=== PATIENT | female | born 1940 | race Caucasian/White ===

== ENCOUNTER 2022-04-28 05:40 | Inpatient (IN) | payer MEDICARE, SELFPAY ==
[2022-04-28] VITALS (34 sets, daily range): BP systolic 98–147; BP diastolic 44–71; PULSE 83–120; RESP 15–25; TEMP 36.3–37.5; O2SAT 90–100; BMI 41.1
--- NOTE | ~2022-04-28 | XR_ITS ---
EXAMINATION: XR chest 1V portable DATE: 05/06/2022 05:48 INDICATION: Left pneumothorax TECHNIQUE: frontal view of the chest was obtained. COMPARISON: Chest radiograph dated 05/05/2022 FINDINGS: Minimal left basilar atelectasis. Small masslike opacity in the left upper lung zone projecting along the lateral margin of the aortic arch. No other airspace opacities, pulmonary edema, pleural effusio n or pneumothorax. The cardiomediastinal silhouette is normal. Left pectoral implantable cardiac norris tor. IMPRESSION: 1. Mild left basilar atelectasis. No pneumothorax or other acute cardiopulmonary disease. 2. Left upper lobe nodule with prior biopsy consistent with either pulmonary hamartoma or chondroma. Reviewed, dictated and finalized at location A. IMPRESSION: 1. Mild left basilar atelectasis. No pneumothorax or other acute cardiopulmonar y disease. 2. Left upper lobe nodule with prior biopsy consistent with either pulmonary mendosa martoma or chondroma.
--- NOTE | ~2022-04-28 | XR_ITS ---
XR chest 1V portable DATE: 05/02/2022 06:43 INDICATION: Pneumothorax post lung biopsy TECHNIQUE: Portable AP chest on 05/02/2022 at 0557 hours COMPARISON: portable AP chest at 13 at 05 hours FINDINGS: Increased left pneumothorax, the left lung apex down 6.5 cm, compared to approximately 2.1 cm on 05/01/2022. 2.3 cm left apical lung mass is again noted. Mild diffuse bilateral pulmonary special infiltrates. No pleural effusion. No right pneumothorax. Heart size is within normal range. IMPRESSION: Increased left pneumothorax since 05/11/2022, left lung apex down 6.5 cm; recommend consid eration for chest tube placement Telephoned the report on 05/02/2022 at 0758 hours to Second Medical Nurse Fadia. Reviewed, dictated and finalized at location A. IMPRESSION: Increased left pneumothorax since 05/11/2022, left lung apex down 6. 5 cm; recommend consideration for chest tube placement Telephoned the report on 05/02/2022 at 0758 hours to Second Medical Nurse Giorgio young
--- NOTE | ~2022-04-28 | XR_ITS ---
EXAMINATION: XR chest 1V portable DATE: 05/01/2022 11:13 INDICATION: Left lung nodule status post percutaneous biopsy. TECHNIQUE: A single frontal view of the chest was obtained. COMPARISON: Chest single view at 10:23 AM FINDINGS: There is a nodule in left lung upper lobe. There is mild atelectasis at left lung base. The re is a small left pneumothorax. No pleural effusion. The heart size is normal. There is an electroni c implant overlying left chest wall. IMPRESSION: 1. Small left pneumothorax. 2. Nodule in left lung upper lobe suspicious for primary bronchogenic carcinoma. Reviewed, dictated and finalized at location A. IMPRESSION: 1. Small left pneumothorax. 2. Nodule in left lung upper lobe suspicious for primary bronchogenic carcinoma .
--- NOTE | ~2022-04-28 | XR_ITS ---
XR chest-chest tube insert/pos DATE: 05/02/2022 10:19 INDICATION: Left pneumothorax. Chest tube placement. TECHNIQUE: Portable upright AP chest on 05/02/2022 at 1013 hours COMPARISON: 05/02/2022 portable AP chest at 0557 hours FINDINGS: Interval placement of left thoracostomy tube with resolution of left pneumothorax. Mild bibasilar infiltrate and/or atelectasis, left greater than right. IMPRESSION: Left chest tube placement; resolution of left pneumothorax Reviewed, dictated and finalized at Location A. Reviewed, dictated and finalized at location A.
--- NOTE | ~2022-04-28 | XR_ITS ---
EXAMINATION: XR chest 1V portable DATE: 05/05/2022 05:35 INDICATION: Left pneumothorax TECHNIQUE: frontal view of the chest was obtained. COMPARISON: Chest radiograph dated 05/04/2022 FINDINGS: Apically directed left chest tube. No pleural effusion or pneumothorax. Nodular opacity in the left u pper lung zone. Mild streaky atelectasis at the left lung base. The cardiomediastinal silhouette is normal. Left pectoral implantable gas dispenser. Oral contrast material in the transverse colon. IMPRESSION: 1. Unchanged left chest tube with no discernible pneumothorax. 2. Left upper lobe nodule with pathology from biopsy consistent with either pulmonary hamartoma or ch ondroma. Reviewed, dictated and finalized at location A. IMPRESSION: 1. Unchanged left chest tube with no discernible pneumothorax. 2. Left upper lobe nodule with pathology from biopsy consistent with either pul monary hamartoma or chondroma.
--- NOTE | ~2022-04-28 | CT_ITS ---
EXAMINATION: CT biopsy lung w/imaging DATE: 05/01/2022 10:35 INDICATION: Left lung upper lobe nodule. TECHNIQUE: The procedure including the risks, benefits, and alternatives and possibility of chest tub e placement were discussed with the patient. Risks discussed included infection, hemorrhage, approxim ately 1/3 risk of pneumothorax, approximately 1/10 risk of pneumothorax severe enough to warrant ches t tube placement, and rarely . The patient understood the risks and agreed to proceed. The patie nt was placed supine. The skin overlying the left chest was prepped and draped in sterile fashion. Anesthetic was administered with 1% lidocaine subcutaneously. A 19 gauge outer needle was advanced u nder CT guidance to the lesion of interest. A 20 gauge core biopsy needle was then used to obtain 3 c ore biopsy specimens. The needle was removed and the entry site was cleaned and dressed. The mA was a djusted according to patient size. Iterative reconstruction technique was employed. The dose-length p roduct was 116.72 mGy-cm. There were no immediate complications. FINDINGS: CT images demonstrate the outer needle tip adjacent to a 2.3 cm nodule in left lung upper l obe. IMPRESSION: 1. CT-guided core needle biopsy of of a 2.3 cm nodule in left lung upper lobe. Reviewed, dictated and finalized at location A.
--- NOTE | ~2022-04-28 | CT_ITS ---
EXAMINATION: CTA chest PE protocol DATE: 04/29/2022 13:46 INDICATION: Shortness of breath. Sepsis. TECHNIQUE: Computed tomography angiography (CTA) of the chest was performed with 100 mL Omnipaque-350 intravenous contrast timed to evaluate the pulmonary arteries. Coronal maximum intensity projection 3D-reconstructions were created by the technologist. Automated exposure control and iterative reconst ruction technique were employed. The dose-length product was 927.16 mGy-cm. COMPARISON: None. FINDINGS: The lungs demonstrate mild atelectasis. In the left upper lobe, there is a 2.3 cm nodule wi th eccentric calcifications. No pleural effusion. The heart size is normal. No pericardial effusion. There is no pulmonary embolus. There is severe thoracic spondylosis. IMPRESSION: 1. No pulmonary embolus. Sensitivity is moderately decreased by motion artifact. 2. 2.3 cm nodule with eccentric calcifications in left lung upper lobe suspicious for primary broncho genic carcinoma. Consider PET/CT or CT-guided biopsy. Reviewed, dictated and finalized at location A. IMPRESSION: 1. No pulmonary embolus. Sensitivity is moderately decreased by motion artifact . 2. 2.3 cm nodule with eccentric calcifications in left lung upper lobe suspicio us for primary bronchogenic carcinoma. Consider PET/CT or CT-guided biopsy.
--- NOTE | ~2022-04-28 | XR_ITS ---
EXAMINATION: XR chest 1V DATE: 05/01/2022 10:25 INDICATION: Left lung nodule status post percutaneous biopsy. TECHNIQUE: A single frontal view of the chest was obtained. COMPARISON: Chest single view 04/28/2022 FINDINGS: There is mild atelectasis at the lung bases. There is a nodule in left lung upper lobe. No pleural effusion or pneumothorax. The heart size is normal. An electronic implant overlies left chest wall. IMPRESSION: 1. Nodule in left lung upper lobe suspicious for primary bronchogenic carcinoma. Reviewed, dictated and finalized at location A. IMPRESSION: 1. Nodule in left lung upper lobe suspicious for primary bronchogenic carcinoma .
--- NOTE | ~2022-04-28 | XR_ITS ---
MODIFIED ESOPHAGRAM HISTORY: Aspiration pneumonia. TECHNIQUE: Modified barium esophagram was performed on 04/29/2022. I administered fluoroscopy and perfo rmed the exam with speech pathologist. Patient was seated for lateral fluoroscopic imaging for inges tion of thin liquids, pudding, solids and quantified amounts, followed by thin liquids in uncontrolle d amounts. This was recorded on tape. A single fluoroscopic spot image was also recorded. The DAP for this procedure was 2.163 Gycm2. The amount of fluoroscopy time used during this procedure was 2.9 mi nutes. FINDINGS: Oral stage: Adequate function. Pharyngeal stage: Occasional laryngeal penetration which was quickly cleared of trace amounts of thin liquid was observed with pudding consistency. No aspiration. Cervical/esophageal stage: Adequate function. IMPRESSION: Trace laryngeal penetration without aspiration. Please correlate with speech pathologist findings and specific feeding recommendations. Reviewed, dictated and finalized at location A. IMPRESSION: Trace laryngeal penetration without aspiration. Please correlate w dominguez speech pathologist findings and specific feeding recommendations.
--- NOTE | ~2022-04-28 | XR_ITS ---
EXAMINATION: XR chest 1V portable DATE: 04/28/2022 06:49 INDICATION: Shortness of breath. TECHNIQUE: A single frontal view of the chest was obtained. COMPARISON: None. FINDINGS: There is mild atelectasis at left lung base. No pleural effusion or pneumothorax. The heart size is normal. An electronic implant overlies left chest. IMPRESSION: 1. Mild atelectasis at left lung base. Reviewed, dictated and finalized at location A.
--- NOTE | ~2022-04-28 | XR_ITS ---
EXAMINATION: XR chest 1V portable DATE: 05/04/2022 06:34 INDICATION: Left pneumothorax TECHNIQUE: frontal view of the chest was obtained. COMPARISON: Chest radiograph dated 05/03/22 FINDINGS: Apically directed left chest tube. Unchanged trace left apical pneumothorax. Mild streaky bibasilar a telectasis. No pulmonary edema, pleural effusion or right-sided pneumothorax. The cardiomediastinal s ilhouette is normal. Left pectoral implantable manager monitoring. There is small amount of subcutaneous emphysema at the lateral left chest wall. IMPRESSION: 1. Unchanged left chest tube with trace residual left apical pneumothorax. 2. Unchanged mild bibasilar atelectasis versus less likely pneumonia. Reviewed, dictated and finalized at location A.
--- NOTE | ~2022-04-28 | XR_ITS ---
EXAMINATION: XR chest 1V portable DATE: 05/05/2022 09:22 INDICATION: Chest tube removal TECHNIQUE: frontal view of the chest was obtained. COMPARISON: Chest radiograph dated at 5:14 AM FINDINGS: Left chest tube has been removed. Lungs are clear with no focal airspace opacities, pulmonary edema, pleural effusion or pneumothorax. The cardiomediastinal silhouette is normal. Left pectoral implantab le radiation monitor. IMPRESSION: 1. No pneumothorax or other acute cardiopulmonary disease post left chest tube removal. Reviewed, dictated and finalized at location A.
--- NOTE | ~2022-04-28 | XR_ITS ---
XR chest 1V portable DATE: 05/03/2022 05:55 INDICATION: Pneumothorax; left chest tube TECHNIQUE: Portable AP chest on 05/03/2022 0546 hours COMPARISON: 05/02/2022 portable AP chest at 1013 hours FINDINGS: Left chest tube is again noted, distal tip overlying left lung apex. Extremely slight left apical pneumothorax is suggested. There is mild subcutaneous emphysema left chest wall. Approximately 2.3 cm left apical lung mass is again noted. There is mild infiltrate or atelectasis lung bases, left lower lobe. IMPRESSION: Slight to mild chest subcutaneous emphysema, left chest tube Left upper lobe lung mass Bilateral lower lung infiltrate or atelectasis, left greater than right Reviewed, dictated and finalized at location A.
--- NOTE | ~2022-04-28 | XR_ITS ---
EXAMINATION: XR chest 1V portable DATE: 05/01/2022 13:11 INDICATION: Left lung nodule status post percutaneous biopsy. TECHNIQUE: A single frontal view of the chest was obtained. COMPARISON: Chest single view at 11:11 AM FINDINGS: There is a nodule in left lung upper lobe. There is mild atelectasis at left lung base. The re is a small left pneumothorax. No pleural effusion. The heart size is normal. There is an electroni c implant in left anterior chest wall. IMPRESSION: 1. Worsened small left pneumothorax. I discussed this finding with Derrick Coyle. 2. Nodule in left lung upper lobe suspicious for primary bronchogenic carcinoma. Reviewed, dictated and finalized at location A. IMPRESSION: 1. Worsened small left pneumothorax. I discussed this finding with Derrick Coyle . 2. Nodule in left lung upper lobe suspicious for primary bronchogenic carcinoma .
--- NOTE | 2022-04-28 05:54 | ECG_ITS ---
Measurements Intervals [place] Rate: 107 P: 36 [place]: 148 QRS: 17 QRSD: 134 T: 25 QT: 368 QTc: 491 Interpretive Statements SINUS TACHYCARDIA RIGHT BUNDLE BRANCH BLOCK BASELINE ARTIFACT- I, II, III, AVR, AVL, AVF, V4-V5 ABNORMAL ECG NO PREVIOUS ECG AVAILABLE FOR COMPARISON Electronically Signed On 04-28-2022 9:27:06 CDT by Domo Fitzgerald D.O.
[2022-04-28 06:04] LABS: Basophils Absolute Auto 0.1 K/mm3 (0.0-0.1); Basophils Percent Auto 0.4 % (0.2-1.2); Eosinophils Percent Auto 0.2 % (0-4.4); Hematocrit 42.1 % (37.0-47.0); Hemoglobin 13.4 g/dL (12.0-15.0); Immature Granulocyte Absolute 0.05 K/mm3 (0.00-0.031); Immature Granulocyte Percent A 0.4 % (0-0.5); Lymphocytes Absolute Auto 0.35 K/mm3 (0.9-3.2); Lymphocytes Percent Auto 2.7 % (18.3-44.2); Mean Corpuscular HGB Conc 31.8 g/dl (32-36); Mean Corpuscular Hemoglobin 29.1 pg (26-34); Mean Corpuscular Volume 91.3 fl (80-100); Mean Platelet Volume 8.7 fl (7.4-10.4); Monocytes Absolute Auto 0.7 K/mm3 (0.1-0.6); Monocytes Percent Auto 5.7 % (2.6-8.5); Neutrophils Absolute Auto 11.6 K/mm3 (1.3-6.7); Neutrophils Percent Auto 90.6 % (45.5-73.1); Platelet Count Result 246 k/mm3 (150-375); Red Blood Count 4.61 M/mm3 (4.2-5.4); Red Cell Distribution Width 13.1 % (11.5-14.5); White Blood Count 12.8 K/mm3 (4.5-10.0)
[2022-04-28] MEDS: methylPREDNISolone SOD SUCC 125 MG VIAL IV PUSH (06:08)
--- NOTE | 2022-04-28 06:10 | ED.SOB ---
HPI - SOB/Dyspnea General Chief Complaint: Shortness of Breath/Dyspnea Stated Complaint: SOB Time Seen by Provider: 04/28/22 05:41 History of Present Illness HPI Narrative: Patient is an 81-year-old female who presents ER with shortness of breath. Began this morning. Patient hypoxic. Requiring 4 L which is new for her. Denies fevers or chills. Significant wheezing. Patient has history of CVA with dysphagia. Denies choking on anything recently. Patient does have a throaty cough. Related Data Home Medications Medication Instructions Recorded Confirmed acetaminophen 500 mg capsule 500 mg PO Q6H PRN Pain 1-3 04/28/22 04/28/22 aspirin 81 mg capsule 81 mg PO DAILY 04/28/22 04/28/22 bimatoprost 0.03 % eye drops 1 drp EACH EYE QPM 04/28/22 04/28/22 brinzolamide 1 %-brimonidine 0.2 % 1 drp LEFT EYE BID 04/28/22 04/28/22 eye drops,suspension (Simbrinza) calcium carbonate 600 mg-vitamin 1 tablet PO DAILY 04/28/22 04/28/22 D3 10 mcg (400 unit) tablet diphenoxylate-atropine 2.5 1 tablet PO QID PRN Diarrhea 04/28/22 04/28/22 mg-0.025 mg tablet fluticasone propionate 50 1 spray intranasal DAILY 04/28/22 04/28/22 mcg/actuation nasal spray,suspension guaifenesin 600 mg tablet, 600 mg PO BID 04/28/22 04/28/22 extended release 12 hr (Mucinex) meclizine 25 mg tablet 25 mg PO TID PRN dizziness 04/28/22 04/28/22 metoclopramide HCl 10 mg tablet 10 mg PO QID 04/28/22 04/28/22 (Reglan) nitrofurantoin 100 mg PO Q12H 04/28/22 04/28/22 monohydrate/macrocrystals 100 mg capsule (Macrobid) pantoprazole 40 mg tablet,delayed 40 mg PO QAM 04/28/22 04/28/22 release phenazopyridine 200 mg tablet 200 mg PO BID 04/28/22 04/28/22 (Pyridium) polyethylene glycol 3350 17 gram 17 g PO DAILY PRN Constipation 04/28/22 04/28/22 oral powder packet (Miralax) tramadol 50 mg tablet 50 mg PO Q8H PRN Pain 4-10 04/28/22 04/28/22 Allergies Allergy/AdvReac Type Severity Reaction Status Date / Time anastrozole Allergy Unknown Verified 04/28/22 13:11 exemestane Allergy Unknown Verified 04/28/22 13:11 tamoxifen Allergy Unknown Verified 04/28/22 13:11 Review of Systems Review of Systems: All systems reviewed & are unremarkable except as noted in HPI and below Constitutional: Constitutional: Denies chills, Denies fatigue, Denies fever(s) and Reports weakness ENT: Reports dysphagia, Denies nasal congestion and Denies sore throat Cardiovascular: Cardiovascular: Denies chest pain, Denies rapid heart rate and Denies radiating jaw, neck or arm pain Respiratory: Respiratory: Reports cough, Reports dyspnea and Reports wheezing Gastrointestinal: Gastrointestinal: Denies abdominal pain, Denies nausea and Denies vomiting [facility] Past Medical History Medical History (Updated 04/29/22 @ 11:20 by SEVEN Stone) Breast CA Chronic constipation Cognitive communication deficit CVA (cerebral vascular accident) Dysphagia Extended spectrum beta lactamase (ESBL) resistance Frequent urinary tract infections Hypercholesterolemia Hypertension Surgical History Surgical History (Updated 04/28/22 @ 13:31 by Iris Prince APRN) History of cataract surgery History of knee replacement Family History Family History (Updated 04/28/22 @ 13:31 by Iris Prince APRN) Mother Family history of malignant neoplasm Lung cancer Social History Social History (Updated 04/28/22 @ 13:32 by Iris Prince APRN) Social History: Patient is a full code. Smoking status: Never smoker Alcohol intake: never Substance use: never Substance use type: does not use Living arrangements: [facility] Additional living arrangements comments: [facility], lived with spouse previously Spiritual care concerns: No Exam Narrative: GENERAL: Chronically ill-appearing, morbidly obese, and in milddistress. HEAD: Normocephalic, atraumatic. EYES: PERRL and EOMI. CHEST: Poor air movement with expiratory wheezing throughou
[2022-04-28] MEDS: IPRATROPIUM BR 0.02% INH SOLN 0.5 MG/2.5 ML VIAL 1.5 MG INHALATION (06:12)
[2022-04-28] MEDS: ALBUTEROL SULFATE NEB 2.5 MG/0.5 ML INH 15 MG (06:12)
[2022-04-28 06:17] LABS: Alanine Aminotransferase 12 U/L (6-35); Albumin Level 4.3 g/dL (3.5-5.1); Alkaline Phosphatase 109 U/L (38-126); Anion Gap 8 mmol/L (8-16); Aspartate Amino Transferase 23 U/L (14-36); Bilirubin,Total 0.8 mg/dL (0.2-1.3); Blood Urea Nitrogen 16 mg/dL (7-17); Calcium 9.9 mg/dL (8.4-10.2); Carbon Dioxide 25 mmol/L (22-30); Chloride 95 mmol/L (98-107); Estimated CRCL calculation 42 ml/min; Estimated Glomerular Filt Rate 43; Glucose 135 mg/dL (65-110); Potassium 4.5 mmol/L (3.4-5.0); Sodium 128 mmol/L (137-145)
[2022-04-28 06:40] LABS: SARS-CoV-2 RNA PCR Negative
[2022-04-28] MEDS: DOXYCYCLINE 100 MG/NS 100 ML 100 MG/100 ML BAG IVPB (11:06)
[2022-04-28] MEDS: AMPICILLIN SULB 1.5 GM/NS 50ML 1.5 GM/50 ML VIAL IVPB (11:06)
--- NOTE | 2022-04-28 11:27 | ADMGEN ---
This patient, Irina Garcia, was admitted to Medical Room 255-. Patient/family oriented to hospital policies and general routines including ID bracelet, bed and alarms, visiting hours, pain management, procedures, bathroom and other care routines, personal items, smoking policy, room service/diet, and visiting hours. Information on how to activate the Rapid Response Team has been discussed. Patient/Family are encouraged to report perceived risks to care and to ask questions if they do not understand what they are told or what they should do.
--- NOTE | 2022-04-28 12:34 | PM.IMHP ---
H&P: HPI History of Present Illness Date/Time: 04/28/22 12:34 Chief Complaint: Shortness of breath Narrative: Irina Garcia is an 81 yo female with medical history of previous stroke, dysphagia, hypertension, hyperlipidemia, breast cancer, and recurrent UTIs associated with ESBL. The patient presented to the ED, from [facility], for evaluation of shortness of breath. The patient is fatigued, but AOx3. Her is at bedside assisting with medical information. She reports shortness of breath at rest starting yesterday evening. Her states last night before dinner she was without complaints. She reports associated alternating chills and sweating, cough with excessive mucous, and fatigue. She endorses coughing with eating and drinking, as well as burning with urination. No chest pain, palpitations, orthopnea, LE edema, abdominal pain, N/V/D, or flank pain. In the ED, her vitals were T99.5F, HR 98, RR 20, BP 130/47, spO2 90% on room air. SpO2 improved to 98% with 4L supplemental O2. Lab work was significant for WBC 12.8 with bandemia, glucose 135, sodium 128, BUN 16, creatinine 1.2, GFR 43, and lactic acid 4.7. Chest x-ray reported left lower lobe atelectasis and EKG showed sinus tachycardia with RBBB and artifact. She was treated with IV Unasyn 1.5 grams, Doxycycline 100 mg IV, solu-medrol 125 mg IV and duonebs x2. She will be admitted to the medical floor for further management of presumed aspiration pneumonia. Review of Systems Review of Systems: All systems reviewed & are unremarkable except as noted in HPI and below Musculoskeletal: Musculoskeletal: Reports neck pain PMFSH Past Medical History Medical History (Updated 04/28/22 @ 14:04 by Iris Prince APRN) Breast CA Chronic constipation Cognitive communication deficit CVA (cerebral vascular accident) Dysphagia Extended spectrum beta lactamase (ESBL) resistance Frequent urinary tract infections Hypercholesterolemia Hypertension Surgical History Surgical History (Updated 04/28/22 @ 13:31 by Iris Prince APRN) History of cataract surgery History of knee replacement Family History Family History (Updated 04/28/22 @ 13:31 by Iris Prince APRN) Mother Family history of malignant neoplasm Lung cancer Social History Social History (Updated 04/28/22 @ 13:32 by Iris Prince APRN) Social History: Patient is a full code. Smoking status: Never smoker Alcohol intake: never Substance use: never Living arrangements: halfway Additional living arrangements comments: [facility], lived with spouse previously Meds Home Medications and Allergies Home Medications Medication Instructions Recorded Confirmed Type acetaminophen 500 mg capsule 500 mg PO Q6H PRN Pain 1-3 04/28/22 04/28/22 History aspirin 81 mg capsule 81 mg PO DAILY 04/28/22 04/28/22 History bimatoprost 0.03 % eye drops 1 drp EACH EYE QPM 04/28/22 04/28/22 History brinzolamide 1 %-brimonidine 0.2 % 1 drp LEFT EYE BID 04/28/22 04/28/22 History eye drops,suspension (Simbrinza) calcium carbonate 600 mg-vitamin 1 tablet PO DAILY 04/28/22 04/28/22 History D3 10 mcg (400 unit) tablet diphenoxylate-atropine 2.5 1 tablet PO QID PRN Diarrhea 04/28/22 04/28/22 History mg-0.025 mg tablet fluticasone propionate 50 1 spray intranasal DAILY 04/28/22 04/28/22 History mcg/actuation nasal spray,suspension guaifenesin 600 mg tablet, 600 mg PO BID 04/28/22 04/28/22 History extended release 12 hr (Mucinex) meclizine 25 mg tablet 25 mg PO TID PRN dizziness 04/28/22 04/28/22 History metoclopramide HCl 10 mg tablet 10 mg PO QID 04/28/22 04/28/22 History (Reglan) nitrofurantoin 100 mg PO Q12H 04/28/22 04/28/22 History monohydrate/macrocrystals 100 mg capsule (Macrobid) pantoprazole 40 mg tablet,delayed 40 mg PO QAM 04/28/22 04/28/22 History release phenazopyridine 200 mg tablet 200 mg PO BID 04/28/22 04/28/22 History (Pyridium)
[2022-04-28 12:58] LABS: Lactic Acid Reflex 4.7 mmol/L (0.7-2.0)
--- NOTE | 2022-04-28 13:05 | PCSTNOTE ---
Please refer to the Bedside Swallow Evaluation in the EMR. Please note, silent aspiration cannot be ruled out at bedside.
--- NOTE | 2022-04-28 13:39 | PCSTNOTE ---
A MBS order was requested and allowed by hospitalist however it will not be completed today due to patient fatigue. Patient will be assessed in the morning for her ability to tolerate the MBS.
[2022-04-28 13:44] LABS: Procalcitonin 0.1 ng/mL
[2022-04-28] MEDS: ALBUTEROL SULFATE NEB 2.5 MG/3 ML INH 5 MG INHALATION ×2 (14:11→21:04)
[2022-04-28] MEDS: SODIUM CHLORIDE 0.9% IV 1,000 ML 999 ML IV CONT (14:14)
[2022-04-28] MEDS: HEPARIN SODIUM 5,000 UNITS/ML VIAL 5000 UNITS SUB-Q ×2 (14:15→20:32)
[2022-04-28 15:41] LABS: Reflex Lactic Acid Yes or No Add Lactic
[2022-04-28 16:34] LABS: Lactic Acid 3.6 mmol/L (0.7-2.0)
[2022-04-28] MEDS: SODIUM CHLORIDE 0.9% IV 1,000 ML 100 ML IV CONT (16:57)
[2022-04-28] MEDS: AMPICILLIN SULB 3 GM/NS 100 ML 3 GM/100 ML VIAL IVPB (16:57)
[2022-04-28 19:21] LABS: Sodium 128 mmol/L (137-145)
[2022-04-28 19:24] LABS: Lactic Acid Reflex 1.8 mmol/L (0.7-2.0)
[2022-04-28] MEDS: LATANOPROST 0.005% OP SOLN 2.5 ML BTL 1 DROP EACH EYE (20:32)
[2022-04-28] MEDS: BRIMONIDINE TARTRATE 0.2% OP SOLN 5 ML BTL 1 DROP LEFT EYE (20:32)
[2022-04-28] MEDS: BRINZOLAMIDE 1% OPHTH SUSP 10 ML 1 DROP LEFT EYE (20:38)
[2022-04-28] MEDS: ACETAMINOPHEN 650 MG SUPPOSITORY RECTAL (22:01)
[2022-04-28 22:13] LABS: Add Urine Microscopic? YES; Appearance Urine Turbid (Clear); Bilirubin Urine 1+ (Negative); Blood Urine 1+ (Negative); Color Urine Brown (Yellow); Glucose Urine UA Trace mg/dL (Negative); Ketones Urine 1+ mg/dL (Negative); Leukocyte Esterase Ur 3+ LEU/UL (Negative); Nitrate Urine Positive (Negative); Protein Urine 2+ mg/dL (Negative); Specific Grav Ur >= 1.030 (1.001-1.035)
[2022-04-28 22:36] LABS: Squamous Epithelial Cell Urine Few /hpf (Few)
[2022-04-28 22:37] LABS: Mucus Urine None seen /lpf
[2022-04-29] VITALS (18 sets, daily range): BP systolic 106–113; BP diastolic 56–75; PULSE 64–82; RESP 18–22; TEMP 36.3–36.7; O2SAT 95–99
[2022-04-29] MEDS: AMPICILLIN SULB 3 GM/NS 100 ML 3 GM/100 ML VIAL IVPB ×4 (00:06→17:19)
[2022-04-29] MEDS: ALBUTEROL SULFATE NEB 2.5 MG/3 ML INH 5 MG INHALATION ×3 (02:28→14:01)
[2022-04-29] MEDS: SODIUM CHLORIDE 0.9% IV 1,000 ML 100 ML IV CONT ×2 (04:05→19:25)
[2022-04-29 05:12] LABS: Eosinophils Percent Auto 0.1 % (0-4.4); Hematocrit 33.7 % (37.0-47.0); Hemoglobin 10.9 g/dL (12.0-15.0); Immature Granulocyte Absolute 0.04 K/mm3 (0.00-0.031); Immature Granulocyte Percent A 0.5 % (0-0.5); Lymphocytes Absolute Auto 0.76 K/mm3 (0.9-3.2); Lymphocytes Percent Auto 9.1 % (18.3-44.2); Mean Corpuscular HGB Conc 32.3 g/dl (32-36); Mean Corpuscular Hemoglobin 29.1 pg (26-34); Mean Corpuscular Volume 90.1 fl (80-100); Mean Platelet Volume 8.9 fl (7.4-10.4); Monocytes Absolute Auto 0.5 K/mm3 (0.1-0.6); Monocytes Percent Auto 6.5 % (2.6-8.5); Neutrophils Percent Auto 83.8 % (45.5-73.1); Platelet Count Result 194 k/mm3 (150-375); Red Blood Count 3.74 M/mm3 (4.2-5.4); White Blood Count 8.4 K/mm3 (4.5-10.0)
[2022-04-29] MEDS: SODIUM CHLOR 3% 15 ML NEB (RESPIRATORY THERAPY) 6 ML INHALATION (05:24)
[2022-04-29 05:26] LABS: Anion Gap 7 mmol/L (8-16); Blood Urea Nitrogen 18 mg/dL (7-17); Calcium 9.4 mg/dL (8.4-10.2); Carbon Dioxide 22 mmol/L (22-30); Chloride 100 mmol/L (98-107); Estimated CRCL calculation 47 ml/min; Estimated Glomerular Filt Rate 60; Glucose 122 mg/dL (65-110); Potassium 4.1 mmol/L (3.4-5.0); Sodium 129 mmol/L (137-145)
[2022-04-29] MEDS: HEPARIN SODIUM 5,000 UNITS/ML VIAL 5000 UNITS SUB-Q ×3 (05:33→21:41)
--- NOTE | 2022-04-29 05:43 | PCRCNOTE ---
patient was unable to submit a sputum sample; 6mL of sodium chloride 3% was given
[2022-04-29 06:12] LABS: Thyroid Stimulating Hormone Reflex 0.314 uIU/mL (0.465-4.68)
[2022-04-29 06:28] LABS: Folic Acid 3.2 ng/mL (2.76->20)
[2022-04-29 07:09] LABS: Free T4 Free Thyroxine Reflex 1.35 ng/dL (0.78-2.19)
--- NOTE | 2022-04-29 08:30 | P.PNIM_ITS ---
Progress Note: A&P Assessment and Plan (1) Sepsis: Qualifiers: Sepsis type: sepsis due to unspecified organism Sepsis acute organ dysfunction status: with acute organ dysfunction Severe sepsis acute organ dysfunction type: acute respiratory failure Acute respiratory failure type: with hypoxia Severe sepsis shock status: without septic shock Qualified Code(s): A41.9 - Sepsis, unspecified organism; R65.20 - Severe sepsis without septic shock; J96.01 - Acute respiratory failure with hypoxia Code(s): A41.9 - Sepsis, unspecified organism Status: Acute Assessment and Plan: * HR>90, WBC> 12,, lactic acid 4.7, and suspected aspiration pneumonia. Lactic acidosis presence is concerning for severe sepsis, however, it may also be elevated d/t hypoxia on presentation. * qSOFA score 1, not high risk * Initiate IV fluids 1 liter bolus then maintenance fluids. * Draw blood cultures x2 * Procalcitonin 0.1. * Repeat lactic acid was 1.8 * Continue antibiotics for presumed aspiration pneumonia. * Obtain UA with reflex culture d/t c/o of dysuria. If positive, will need to adjust antibiotics d/t h/o ESBL infection * Monitor hemodynamics. * +hypoxia and mildly elevated serum creatinine (unknown baseline). (2) Pneumonia: Qualifiers: Aspiration pneumonia type: unspecified Laterality: unspecified laterality Lung location: unspecified part of lung Pneumonia type: aspiration pneumonia Qualified Code(s): J69.0 - Pneumonitis due to inhalation of food and vomit Code(s): J18.9 - Pneumonia, unspecified organism Status: Acute Assessment and Plan: * Not sure this is PNA * Modified barium swallow did not indicate any aspiration * CTA of the chest ordered * Continue Unasyn for presumed aspiration pneumonia. * Albuterol neb PRN * Urine pneumococcal and legionella Ag pending (3) Hypoxia: Code(s): R09.02 - Hypoxemia Status: Acute Assessment and Plan: * Patient requiring supplemental O2 to keep sats>90%. * Continue O2, wean as tolerated. * Add incentive spirometry. * Continue management of pneumonia * CTA of the chest to rule out other causes like Clots or COPD (4) Hyponatremia: Code(s): E87.1 - Hypo-osmolality and hyponatremia Status: Acute Assessment and Plan: * Sodium 128 on admission, currently 129 * +Lethargy, but AOx3. Likely 2/2 hypovolemia as creatinine is mildly elevated. * NS@100 mL/hour. She received 1 L NS bolus for sepsis. * Continue to trend labs * Urine studies ordered (5) Generalized weakness: Code(s): R53.1 - Weakness Status: Acute Assessment and Plan: Secondary to UTI, sepsis, hyponatremia and presumed deconditioning. * PT/OT eval * Fall precautions (6) Dysphagia: Qualifiers: Dysphagia type: unspecified Qualified Code(s): R13.10 - Dysphagia, unspecified Code(s): R13.10 - Dysphagia, unspecified Status: Chronic Assessment and Plan: * H/O dysphagia following stroke. She reports eating bite-sized diet with thin liquids. +moist cough and subjective report of coughing with eating/drinking. * Consult speech therapy. * Advance diet to recommendations from speech * Not really convenience that this ois aspiration related * HOB>30. Aspiration precautions. (7) Frequent urinary tract infections: Code(s): N39.0 - Urinary tract infection, site not specified Status: Chronic Ass
--- NOTE | 2022-04-29 08:30 | PM.IMPN ---
Progress Note: A&P Assessment and Plan (1) Sepsis: Qualifiers: Sepsis type: sepsis due to unspecified organism Sepsis acute organ dysfunction status: with acute organ dysfunction Severe sepsis acute organ dysfunction type: acute respiratory failure Acute respiratory failure type: with hypoxia Severe sepsis shock status: without septic shock Qualified Code(s): A41.9 - Sepsis, unspecified organism; R65.20 - Severe sepsis without septic shock; J96.01 - Acute respiratory failure with hypoxia Code(s): A41.9 - Sepsis, unspecified organism Status: Acute Assessment and Plan: HR>90, WBC> 12,, lactic acid 4.7, and suspected aspiration pneumonia. Lactic acidosis presence is concerning for severe sepsis, however, it may also be elevated d/t hypoxia on presentation. qSOFA score 1, not high risk Initiate IV fluids 1 liter bolus then maintenance fluids. Draw blood cultures x2 Procalcitonin 0.1. Repeat lactic acid was 1.8 Continue antibiotics for presumed aspiration pneumonia. Obtain UA with reflex culture d/t c/o of dysuria. If positive, will need to adjust antibiotics d/t h/o ESBL infection Monitor hemodynamics. +hypoxia and mildly elevated serum creatinine (unknown baseline). (2) Pneumonia: Qualifiers: Aspiration pneumonia type: unspecified Laterality: unspecified laterality Lung location: unspecified part of lung Pneumonia type: aspiration pneumonia Qualified Code(s): J69.0 - Pneumonitis due to inhalation of food and vomit Code(s): J18.9 - Pneumonia, unspecified organism Status: Acute Assessment and Plan: Not sure this is PNA Modified barium swallow did not indicate any aspiration CTA of the chest ordered Continue Unasyn for presumed aspiration pneumonia. Albuterol neb PRN Urine pneumococcal and legionella Ag pending (3) Hypoxia: Code(s): R09.02 - Hypoxemia Status: Acute Assessment and Plan: Patient requiring supplemental O2 to keep sats>90%. Continue O2, wean as tolerated. Add incentive spirometry. Continue management of pneumonia CTA of the chest to rule out other causes like Clots or COPD (4) Hyponatremia: Code(s): E87.1 - Hypo-osmolality and hyponatremia Status: Acute Assessment and Plan: Sodium 128 on admission, currently 129 +Lethargy, but AOx3. Likely 2/2 hypovolemia as creatinine is mildly elevated. NS@100 mL/hour. She received 1 L NS bolus for sepsis. Continue to trend labs Urine studies ordered (5) Generalized weakness: Code(s): R53.1 - Weakness Status: Acute Assessment and Plan: Secondary to UTI, sepsis, hyponatremia and presumed deconditioning. PT/OT eval Fall precautions (6) Dysphagia: Qualifiers: Dysphagia type: unspecified Qualified Code(s): R13.10 - Dysphagia, unspecified Code(s): R13.10 - Dysphagia, unspecified Status: Chronic Assessment and Plan: H/O dysphagia following stroke. She reports eating bite-sized diet with thin liquids. +moist cough and subjective report of coughing with eating/drinking. Consult speech therapy. Advance diet to recommendations from speech Not really convenience that this ois aspiration related HOB>30. Aspiration precautions. (7) Frequent urinary tract infections: Code(s): N39.0 - Urinary tract infection, site not specified Status: Chronic Assessment and Plan: Denies any further complaints of urinary dysfunction +c/o burning with urination. No suprapubic tenderness or flank pain. Urine culture pending Continue Unasyn for now (8) Anemia: Code(s): D64.9 - Anemia, unspecified Status: Acute Assessment and Plan: Current H/H 10.9/33.7 Anemia labs in the am Supplement as indicated Transfuse if Hgb <7.0 Continue to trend labs Time Spent With Patient Time with anastasia
[2022-04-29 09:14] LABS: Total Triiodothyronine (T3) 0.55 NG/ML (0.97-1.69)
[2022-04-29] MEDS: BRIMONIDINE TARTRATE 0.2% OP SOLN 5 ML BTL 1 DROP LEFT EYE ×2 (09:27→20:38)
[2022-04-29] MEDS: BRINZOLAMIDE 1% OPHTH SUSP 10 ML 1 DROP LEFT EYE ×2 (09:27→20:38)
[2022-04-29] MEDS: PANTOPRAZOLE SODIUM IV 40 MG VIAL IV PUSH (09:27)
[2022-04-29] MEDS: LIDOCAINE 5% PATCH 1 PATCH TRANSDERM (09:28)
[2022-04-29] MEDS: FLUTICASONE PROPIONATE 0.05% NA SPR 16 GM BTL (*BKC) 1 SPRAY NASAL (09:28)
--- NOTE | 2022-04-29 09:32 | PCSTNOTE ---
Please refer to the Modified Barium Swallow Evaluation in the EMR.
[2022-04-29] MEDS: ALBUTEROL SULFATE NEB 2.5 MG/0.5 ML INH (20:17)
[2022-04-29] MEDS: ACETAMINOPHEN 650 MG SUPPOSITORY RECTAL (20:36)
[2022-04-29] MEDS: LATANOPROST 0.005% OP SOLN 2.5 ML BTL 1 DROP EACH EYE (20:38)
[2022-04-30] VITALS (17 sets, daily range): BP systolic 106–137; BP diastolic 53–77; PULSE 61–83; RESP 18–20; TEMP 36.5–36.8; O2SAT 95–99
[2022-04-30] MEDS: AMPICILLIN SULB 3 GM/NS 100 ML 3 GM/100 ML VIAL IVPB ×5 (00:09→23:44)
[2022-04-30 05:13] LABS: Basophils Percent Auto 0.4 % (0.2-1.2); Eosinophils Absolute Auto 0.8 K/mm3 (0-0.3); Eosinophils Percent Auto 11.4 % (0-4.4); Hematocrit 32.7 % (37.0-47.0); Hemoglobin 10.5 g/dL (12.0-15.0); Immature Granulocyte Absolute 0.04 K/mm3 (0.00-0.031); Immature Granulocyte Percent A 0.6 % (0-0.5); Lymphocytes Absolute Auto 1.51 K/mm3 (0.9-3.2); Lymphocytes Percent Auto 21.6 % (18.3-44.2); Mean Corpuscular HGB Conc 32.1 g/dl (32-36); Mean Corpuscular Hemoglobin 29.2 pg (26-34); Mean Corpuscular Volume 90.8 fl (80-100); Mean Platelet Volume 8.6 fl (7.4-10.4); Monocytes Absolute Auto 0.7 K/mm3 (0.1-0.6); Monocytes Percent Auto 9.3 % (2.6-8.5); Neutrophils Percent Auto 56.7 % (45.5-73.1); Platelet Count Result 195 k/mm3 (150-375); Red Cell Distribution Width 13.2 % (11.5-14.5)
[2022-04-30 05:23] LABS: Alanine Aminotransferase 12 U/L (6-35); Alkaline Phosphatase 68 U/L (38-126); Anion Gap 6 mmol/L (8-16); Aspartate Amino Transferase 20 U/L (14-36); Bilirubin,Total 0.3 mg/dL (0.2-1.3); Blood Urea Nitrogen 18 mg/dL (7-17); Carbon Dioxide 24 mmol/L (22-30); Chloride 101 mmol/L (98-107); Estimated CRCL calculation 39 ml/min; Estimated Glomerular Filt Rate 48; Glucose 85 mg/dL (65-110); Magnesium 1.9 mg/dL (1.6-2.3); Potassium 4.2 mmol/L (3.4-5.0); Sodium 131 mmol/L (137-145)
[2022-04-30 05:30] LABS: Transferrin 214 mg/dL (206-381)
[2022-04-30 05:34] LABS: Iron 22 ug/dL (37-170)
[2022-04-30 05:43] LABS: Percent Iron Saturation 7 % (20-50)
[2022-04-30] MEDS: HEPARIN SODIUM 5,000 UNITS/ML VIAL 5000 UNITS SUB-Q ×2 (05:45→13:59)
[2022-04-30] MEDS: SODIUM CHLORIDE 0.9% IV 1,000 ML 100 ML IV CONT (05:45)
[2022-04-30 07:53] LABS: Partial Thromboplastin Time 45.9 SECONDS (22.3-36.8)
--- NOTE | 2022-04-30 08:30 | PM.IMPN ---
Progress Note: A&P Assessment and Plan (1) Sepsis: Qualifiers: Acute respiratory failure type: with hypoxia Sepsis acute organ dysfunction status: with acute organ dysfunction Sepsis type: sepsis due to unspecified organism Severe sepsis acute organ dysfunction type: acute respiratory failure Severe sepsis shock status: without septic shock Qualified Code(s): A41.9 - Sepsis, unspecified organism; R65.20 - Severe sepsis without septic shock; J96.01 - Acute respiratory failure with hypoxia Code(s): A41.9 - Sepsis, unspecified organism Status: Acute Assessment and Plan: HR>90, WBC> 12, lactic acid 4.7, and suspected aspiration pneumonia. Lactic acidosis presence is concerning for severe sepsis, however, it may also be elevated d/t hypoxia on presentation. qSOFA score 1, not high risk Fluids stopped at this time blood cultures x2, NGTD Procalcitonin 0.1. Repeat lactic acid was 1.8 Continue antibiotics for presumed UTI Obtain UA with reflex culture d/t c/o of dysuria. If positive, will need to adjust antibiotics d/t h/o ESBL infection Monitor hemodynamics. Hypoxia and mildly elevated serum creatinine (unknown baseline). (2) Pneumonia: Qualifiers: Aspiration pneumonia type: unspecified Laterality: unspecified laterality Lung location: unspecified part of lung Pneumonia type: aspiration pneumonia Qualified Code(s): J69.0 - Pneumonitis due to inhalation of food and vomit Code(s): J18.9 - Pneumonia, unspecified organism Status: Acute Assessment and Plan: Not a problem at this time Not sure this is PNA Modified barium swallow did not indicate any aspiration CTA of the chest showed 2.3cm nodule in the left upper lobe Will continue antibiotics for possible UTI Albuterol neb PRN Urine pneumococcal and legionella Ag pending (3) Hypoxia: Code(s): R09.02 - Hypoxemia Status: Acute Assessment and Plan: Patient requiring supplemental O2 to keep sats>90%. Continue O2, wean as tolerated. Add incentive spirometry. Probably from the nodule in the left upper lobe CTA of the chest 2.3cm nodule in the left upper lobe Biopsy ordered Consult oncology for further recommendation (4) Hyponatremia: Code(s): E87.1 - Hypo-osmolality and hyponatremia Status: Acute Assessment and Plan: Sodium 128 on admission, currently 131 Noted Lethargy AOx3. Likely 2/2 hypovolemia as creatinine is mildly elevated. Stopped fluids at this time Continue to trend labs Urine studies ordered yet not collected (5) Generalized weakness: Code(s): R53.1 - Weakness Status: Acute Assessment and Plan: Secondary to UTI, sepsis, hyponatremia and presumed deconditioning. PT/OT eval Fall precautions (6) Dysphagia: Qualifiers: Dysphagia type: unspecified Qualified Code(s): R13.10 - Dysphagia, unspecified Code(s): R13.10 - Dysphagia, unspecified Status: Chronic Assessment and Plan: H/O dysphagia following stroke. She reports eating bite-sized diet with thin liquids. +moist cough and subjective report of coughing with eating/drinking. Consult speech therapy. Advance diet to recommendations from speech Soft and bite sized with thin liquids Not really convenience that this is aspiration related HOB>30. Aspiration precautions. (7) Frequent urinary tract infections: Code(s): N39.0 - Urinary tract infection, site not specified Status: Chronic Assessment and Plan: UA does appear to be infectious Denies any further complaints of urinary dysfunction +c/o burning with urination. No suprapubic tenderness or flank pain. Urine culture pending Continue Unasyn for now (8) Anemia: Code(s): D64.9 - Anemia, unspecified Status: Acute Assessment and Plan: Cu
--- NOTE | 2022-04-30 08:30 | P.PNIM_ITS ---
Progress Note: A&P Assessment and Plan (1) Sepsis: Qualifiers: Acute respiratory failure type: with hypoxia Sepsis acute organ dysfunction status: with acute organ dysfunction Sepsis type: sepsis due to unspecified organism Severe sepsis acute organ dysfunction type: acute respiratory failure Severe sepsis shock status: without septic shock Qualified Code(s): A41.9 - Sepsis, unspecified organism; R65.20 - Severe sepsis without septic shock; J96.01 - Acute respiratory failure with hypoxia Code(s): A41.9 - Sepsis, unspecified organism Status: Acute Assessment and Plan: * HR>90, WBC> 12, lactic acid 4.7, and suspected aspiration pneumonia. Lactic acidosis presence is concerning for severe sepsis, however, it may also be elevated d/t hypoxia on presentation. * qSOFA score 1, not high risk * Fluids stopped at this time * blood cultures x2, NGTD * Procalcitonin 0.1. * Repeat lactic acid was 1.8 * Continue antibiotics for presumed UTI * Obtain UA with reflex culture d/t c/o of dysuria. If positive, will need to adjust antibiotics d/t h/o ESBL infection * Monitor hemodynamics. * Hypoxia and mildly elevated serum creatinine (unknown baseline). (2) Pneumonia: Qualifiers: Aspiration pneumonia type: unspecified Laterality: unspecified laterality Lung location: unspecified part of lung Pneumonia type: aspiration pneumonia Qualified Code(s): J69.0 - Pneumonitis due to inhalation of food and vomit Code(s): J18.9 - Pneumonia, unspecified organism Status: Acute Assessment and Plan: * Not a problem at this time * Not sure this is PNA * Modified barium swallow did not indicate any aspiration * CTA of the chest showed 2.3cm nodule in the left upper lobe * Will continue antibiotics for possible UTI * Albuterol neb PRN * Urine pneumococcal and legionella Ag pending (3) Hypoxia: Code(s): R09.02 - Hypoxemia Status: Acute Assessment and Plan: * Patient requiring supplemental O2 to keep sats>90%. * Continue O2, wean as tolerated. * Add incentive spirometry. * Probably from the nodule in the left upper lobe * CTA of the chest 2.3cm nodule in the left upper lobe * Biopsy ordered * Consult oncology for further recommendation (4) Hyponatremia: Code(s): E87.1 - Hypo-osmolality and hyponatremia Status: Acute Assessment and Plan: * Sodium 128 on admission, currently 131 * Noted Lethargy AOx3. Likely 2/2 hypovolemia as creatinine is mildly elevated. * Stopped fluids at this time * Continue to trend labs * Urine studies ordered yet not collected (5) Generalized weakness: Code(s): R53.1 - Weakness Status: Acute Assessment and Plan: * Secondary to UTI, sepsis, hyponatremia and presumed deconditioning. * PT/OT eval * Fall precautions (6) Dysphagia: Qualifiers: Dysphagia type: unspecified Qualified Code(s): R13.10 - Dysphagia, unspecified Code(s): R13.10 - Dysphagia, unspecified Status: Chronic Assessment and Plan: * H/O dysphagia following stroke. She reports eating bite-sized diet with thin liquids. +moist cough and subjective report of coughing with eating/drinking. * Consult speech therapy. * Advance diet to recommendations from speech * Soft and bite sized with thin liquids * Not really convenience that this is aspiration related * HOB>30. Aspiration precauti
[2022-04-30] MEDS: ALBUTEROL SULFATE NEB 2.5 MG/3 ML INH 5 MG INHALATION ×3 (08:46→21:12)
[2022-04-30] MEDS: SODIUM CHLOR 3% 15 ML NEB (RESPIRATORY THERAPY) 6 ML INHALATION (08:53)
[2022-04-30] MEDS: PANTOPRAZOLE SODIUM IV 40 MG VIAL IV PUSH (09:08)
[2022-04-30] MEDS: FERROUS SULFATE 324 MG TABLET PO ×2 (09:08→17:09)
[2022-04-30] MEDS: FLUTICASONE PROPIONATE 0.05% NA SPR 16 GM BTL (*BKC) 1 SPRAY NASAL (09:09)
[2022-04-30] MEDS: LIDOCAINE 5% PATCH 1 PATCH TRANSDERM (09:09)
[2022-04-30] MEDS: BRIMONIDINE TARTRATE 0.2% OP SOLN 5 ML BTL 1 DROP LEFT EYE ×2 (09:10→19:36)
[2022-04-30] MEDS: BRINZOLAMIDE 1% OPHTH SUSP 10 ML 1 DROP LEFT EYE ×2 (09:16→19:37)
[2022-04-30 10:56] LABS: Creatinine Urine 24.6 mg/dL; Urea Random Urine 207 MG/DL
[2022-04-30 10:58] LABS: Sodium Urine Random 98 meq/L
[2022-04-30] MEDS: SENNA/DOCUSATE SODIUM TABLET 1 TAB PO ×2 (12:21→19:36)
[2022-04-30] MEDS: polyethylene glycoL 3350 17 GM POWD.PACK PO (12:21)
[2022-04-30] MEDS: LATANOPROST 0.005% OP SOLN 2.5 ML BTL 1 DROP EACH EYE (19:36)
[2022-05-01] VITALS (15 sets, daily range): BP systolic 116–132; BP diastolic 49–86; PULSE 65–102; RESP 18–20; TEMP 36.4–36.7; O2SAT 94–96
[2022-05-01] MEDS: ALBUTEROL SULFATE NEB 2.5 MG/3 ML INH 5 MG INHALATION ×2 (02:15→14:08)
[2022-05-01] MEDS: AMPICILLIN SULB 3 GM/NS 100 ML 3 GM/100 ML VIAL IVPB ×2 (04:57→11:41)
[2022-05-01 05:09] LABS: Basophils Percent Auto 0.5 % (0.2-1.2); Eosinophils Absolute Auto 0.7 K/mm3 (0-0.3); Eosinophils Percent Auto 12.3 % (0-4.4); Hematocrit 33.3 % (37.0-47.0); Hemoglobin 10.6 g/dL (12.0-15.0); Immature Granulocyte Absolute 0.03 K/mm3 (0.00-0.031); Immature Granulocyte Percent A 0.5 % (0-0.5); Lymphocytes Percent Auto 28.6 % (18.3-44.2); Mean Corpuscular HGB Conc 31.8 g/dl (32-36); Mean Corpuscular Hemoglobin 29.4 pg (26-34); Mean Corpuscular Volume 92.2 fl (80-100); Mean Platelet Volume 8.8 fl (7.4-10.4); Monocytes Absolute Auto 0.6 K/mm3 (0.1-0.6); Monocytes Percent Auto 11.4 % (2.6-8.5); Neutrophils Absolute Auto 2.6 K/mm3 (1.3-6.7); Neutrophils Percent Auto 46.7 % (45.5-73.1); Platelet Count Result 195 k/mm3 (150-375); Red Blood Count 3.61 M/mm3 (4.2-5.4); Red Cell Distribution Width 13.2 % (11.5-14.5); White Blood Count 5.6 K/mm3 (4.5-10.0)
[2022-05-01 05:15] LABS: Alanine Aminotransferase 11 U/L (6-35); Albumin Level 2.9 g/dL (3.5-5.1); Alkaline Phosphatase 54 U/L (38-126); Anion Gap 7 mmol/L (8-16); Aspartate Amino Transferase 18 U/L (14-36); Bilirubin,Total 0.2 mg/dL (0.2-1.3); Blood Urea Nitrogen 16 mg/dL (7-17); Calcium 8.6 mg/dL (8.4-10.2); Carbon Dioxide 26 mmol/L (22-30); Chloride 100 mmol/L (98-107); Estimated CRCL calculation 43 ml/min; Estimated Glomerular Filt Rate 53; Glucose 88 mg/dL (65-110); Magnesium 1.9 mg/dL (1.6-2.3); Potassium 4.3 mmol/L (3.4-5.0); Sodium 133 mmol/L (137-145)
[2022-05-01 05:17] LABS: Prothrombin Time 12.9 Seconds (11.1-14.7)
[2022-05-01 05:18] LABS: Partial Thromboplastin Time 27.5 SECONDS (22.3-36.8)
--- NOTE | 2022-05-01 08:00 | PM.IMPN ---
Progress Note: A&P Assessment and Plan (1) Sepsis: Qualifiers: Acute respiratory failure type: with hypoxia Sepsis acute organ dysfunction status: with acute organ dysfunction Sepsis type: sepsis due to unspecified organism Severe sepsis acute organ dysfunction type: acute respiratory failure Severe sepsis shock status: without septic shock Qualified Code(s): A41.9 - Sepsis, unspecified organism; R65.20 - Severe sepsis without septic shock; J96.01 - Acute respiratory failure with hypoxia Code(s): A41.9 - Sepsis, unspecified organism Status: Acute Assessment and Plan: HR>90, WBC> 12, lactic acid 4.7, and suspected aspiration pneumonia. Lactic acidosis presence is concerning for severe sepsis, however, it may also be elevated d/t hypoxia on presentation. qSOFA score 1, not high risk Fluids stopped at this time blood cultures x2, NGTD Procalcitonin 0.1. Repeat lactic acid was 1.8 Urine culture showed no growth Continue antibiotics as sputum culture has gram positive cocci, still pending final growth Hypoxia and mildly elevated serum creatinine (unknown baseline). (2) Hypoxia: Code(s): R09.02 - Hypoxemia Status: Acute Assessment and Plan: Patient requiring supplemental O2 to keep sats>90%. Continue O2, wean as tolerated. Add incentive spirometry. Probably from the nodule in the left upper lobe CTA of the chest 2.3cm nodule in the left upper lobe Biopsy ordered Consult oncology for further recommendation (3) Hyponatremia: Code(s): E87.1 - Hypo-osmolality and hyponatremia Status: Acute Assessment and Plan: Resolving Sodium 128 on admission, currently 133 Noted Lethargy AOx3. Likely 2/2 hypovolemia as creatinine is mildly elevated. Continue to trend labs Urine studies ordered ur sodium 98, Ur urea 207, Ur creatinine 24.6 Stable (4) Generalized weakness: Code(s): R53.1 - Weakness Status: Acute Assessment and Plan: Secondary to UTI, sepsis, hyponatremia and presumed deconditioning. PT/OT eval Fall precautions (5) Dysphagia: Qualifiers: Dysphagia type: unspecified Qualified Code(s): R13.10 - Dysphagia, unspecified Code(s): R13.10 - Dysphagia, unspecified Status: Chronic Assessment and Plan: H/O dysphagia following stroke. She reports eating bite-sized diet with thin liquids. +moist cough and subjective report of coughing with eating/drinking. Consult speech therapy. Advance diet to recommendations from speech Soft and bite sized with thin liquids Not really convenience that this is aspiration related HOB>30. Aspiration precautions. (6) Frequent urinary tract infections: Code(s): N39.0 - Urinary tract infection, site not specified Status: Chronic Assessment and Plan: UA does appear to be infectious Denies any further complaints of urinary dysfunction +c/o burning with urination. No suprapubic tenderness or flank pain. Urine culture shows no growth (7) Anemia: Code(s): D64.9 - Anemia, unspecified Status: Acute Assessment and Plan: Current H/H 10.6/33.3 Anemia labs iron 22, TIBC 302, % sat 7, Transferrin 214, Ferritin 22.90, B12 812, Folate 3.2 Ferrous sulfate 324mg PO BID Supplement as indicated Transfuse if Hgb <7.0 Continue to trend labs (8) Lung nodule: Code(s): R91.1 - Solitary pulmonary nodule Status: Acute Assessment and Plan: Nodule noted on the CTA Biopsy ordered with pathology Consider Oncology consult supplemental oxygen as indicated Time Spent With Patient Time with patient: Greater than 35 minutes Subjective Date/time seen: 05/01/22 08:00 Interval history: 05/01/22 0800 Patient stated that she is feeling okay today. She is worried about her throat when I asked her ab
--- NOTE | 2022-05-01 08:00 | P.PNIM_ITS ---
Progress Note: A&P Assessment and Plan (1) Sepsis: Qualifiers: Acute respiratory failure type: with hypoxia Sepsis acute organ dysfunction status: with acute organ dysfunction Sepsis type: sepsis due to unspecified organism Severe sepsis acute organ dysfunction type: acute respiratory failure Severe sepsis shock status: without septic shock Qualified Code(s): A41.9 - Sepsis, unspecified organism; R65.20 - Severe sepsis without septic shock; J96.01 - Acute respiratory failure with hypoxia Code(s): A41.9 - Sepsis, unspecified organism Status: Acute Assessment and Plan: * HR>90, WBC> 12, lactic acid 4.7, and suspected aspiration pneumonia. Lactic acidosis presence is concerning for severe sepsis, however, it may also be elevated d/t hypoxia on presentation. * qSOFA score 1, not high risk * Fluids stopped at this time * blood cultures x2, NGTD * Procalcitonin 0.1. * Repeat lactic acid was 1.8 * Urine culture showed no growth * Continue antibiotics as sputum culture has gram positive cocci, still pending final growth * Hypoxia and mildly elevated serum creatinine (unknown baseline). (2) Hypoxia: Code(s): R09.02 - Hypoxemia Status: Acute Assessment and Plan: * Patient requiring supplemental O2 to keep sats>90%. * Continue O2, wean as tolerated. * Add incentive spirometry. * Probably from the nodule in the left upper lobe * CTA of the chest 2.3cm nodule in the left upper lobe * Biopsy ordered * Consult oncology for further recommendation (3) Hyponatremia: Code(s): E87.1 - Hypo-osmolality and hyponatremia Status: Acute Assessment and Plan: * Resolving * Sodium 128 on admission, currently 133 * Noted Lethargy AOx3. Likely 2/2 hypovolemia as creatinine is mildly elevated. * Continue to trend labs * Urine studies ordered ur sodium 98, Ur urea 207, Ur creatinine 24.6 * Stable (4) Generalized weakness: Code(s): R53.1 - Weakness Status: Acute Assessment and Plan: * Secondary to UTI, sepsis, hyponatremia and presumed deconditioning. * PT/OT eval * Fall precautions (5) Dysphagia: Qualifiers: Dysphagia type: unspecified Qualified Code(s): R13.10 - Dysphagia, unspecified Code(s): R13.10 - Dysphagia, unspecified Status: Chronic Assessment and Plan: * H/O dysphagia following stroke. She reports eating bite-sized diet with thin liquids. +moist cough and subjective report of coughing with eating/drinking. * Consult speech therapy. * Advance diet to recommendations from speech * Soft and bite sized with thin liquids * Not really convenience that this is aspiration related * HOB>30. Aspiration precautions. (6) Frequent urinary tract infections: Code(s): N39.0 - Urinary tract infection, site not specified Status: Chronic Assessment and Plan: * UA does appear to be infectious * Denies any further complaints of urinary dysfunction * +c/o burning with urination. No suprapubic tenderness or flank pain. * Urine culture shows no growth (7) Anemia: Code(s): D64.9 - Anemia, unspecified Status: Acute Assessment and Plan: * Current H/H 10.6/33.3 * Anemia labs iron 22, TIBC 302, % sat 7, Transferrin 214, Ferritin 22.90, B12 812, Folate 3.2 * Ferrous sulfate 324mg PO BID * Supplement as indicated * T
[2022-05-01] MEDS: FLUTICASONE PROPIONATE 0.05% NA SPR 16 GM BTL (*BKC) 1 SPRAY NASAL (08:42)
[2022-05-01] MEDS: BRIMONIDINE TARTRATE 0.2% OP SOLN 5 ML BTL 1 DROP LEFT EYE ×2 (08:43→20:03)
[2022-05-01] MEDS: FERROUS SULFATE 324 MG TABLET PO ×2 (08:43→18:29)
[2022-05-01] MEDS: PANTOPRAZOLE 40 MG TABLET PO (08:44)
[2022-05-01] MEDS: BRINZOLAMIDE 1% OPHTH SUSP 10 ML 1 DROP LEFT EYE ×2 (08:47→20:04)
--- NOTE | 2022-05-01 09:36 | PCOTNOTE ---
Attempted to see patient this am, however patient was off floor for testing/procedure.
--- NOTE | 2022-05-01 09:40 | P.CDI_ITS ---
CDI Query Clarification Request 05/01 Hospitalist documented: -Anemia: ?Code(s): D64.9 - Anemia, unspecified ?Status:?Acute ?Assessment and Plan: * Current H/H 10.633.3 * Anemia labs iron 22, TIBC 302, % sat 7, Transferrin 214, Ferritin 22.90, B12 812, Folate 3.2 * Ferrous sulfate 324mg PO BID * Supplement as indicated * Transfuse if Hgb <7.0 * Continue to trend labs Diagnosis Anemia first documented, 04/29. With current lab values dated 05/01, please clarify: -Acuity of Anemia: Acute or Chronic -Type of Anemia: Acute blood loss anemica Iron deficiency anemia Hemolytic anemia Anemia of chronic disease Other Unable to determine <Bhargavi Bonilla - Last Filed: 05/01/22 10:02> 05/01 Hospitalist documented: -Anemia: ?Code(s): D64.9 - Anemia, unspecified ?Status:?Acute ?Assessment and Plan: * Current H/H 10.33.3 * Anemia labs iron 22, TIBC 302, % sat 7, Transferrin 214, Ferritin 22.90, B12 812, Folate 3.2 * Ferrous sulfate 324mg PO BID * Supplement as indicated * Transfuse if Hgb <7.0 * Continue to trend labs Diagnosis Anemia first documented, 04/29. With current lab values dated 05/01, please clarify: -Acuity of Anemia: Acute or Chronic -Type of Anemia: Acute blood loss anemica Iron deficiency anemia Hemolytic anemia Anemia of chronic disease Other Unable to determine <SEVEN Stone - Last Filed: 05/01/22 13:29> Clarified Diagnosis (1) Iron deficiency anemia: Code(s): D50.9 - Iron deficiency anemia, unspecified <Bhargavi Bonilla - Last Filed: 05/01/22 10:02> Status: Acute <Bhargavi Bonilla - Last Filed: 05/01/22 10:02> Assessment and Plan: Iron deficient anemia <SEVEN Stone - Last Filed: 05/01/22 13:29>
--- NOTE | 2022-05-01 10:17 | PCPTNOTE ---
Attempted to see patient for PT at tis time, however patient was out of room for procedure.
[2022-05-01] MEDS: ACETAMINOPHEN 500 MG TABLET 1000 MG PO ×2 (11:27→20:05)
[2022-05-01] MEDS: LIDOCAINE 5% PATCH 1 PATCH TRANSDERM (11:37)
[2022-05-01] MEDS: polyethylene glycoL 3350 17 GM POWD.PACK PO (11:39)
--- NOTE | 2022-05-01 12:42 | PCOTNOTE ---
Attempted to see patient this pm, however patient refused. Pt stated, I'm not getting up, because I just ate, and I'm not messing with that machine. And they already cleaned me up, because when I got back I was a mess. Pt declined upper extremity exercise due to pain from procedure this am.
[2022-05-01] MEDS: ALBUTEROL SULFATE NEB 2.5 MG/0.5 ML INH (14:08)
[2022-05-01 16:50] LABS: Pneumococcal Antigen Urine Not Detected (Not Detected)
[2022-05-01] MEDS: LATANOPROST 0.005% OP SOLN 2.5 ML BTL 1 DROP EACH EYE (20:03)
[2022-05-01] MEDS: SENNA/DOCUSATE SODIUM TABLET 1 TAB PO (20:05)
[2022-05-01] MEDS: HEPARIN SODIUM 5,000 UNITS/ML VIAL 5000 UNITS SUB-Q (20:05)
[2022-05-02] VITALS (21 sets, daily range): BP systolic 121–162; BP diastolic 56–74; PULSE 71–92; RESP 12–22; TEMP 36.1–36.8; O2SAT 93–95
[2022-05-02] MEDS: ALBUTEROL SULFATE NEB 2.5 MG/3 ML INH 5 MG INHALATION ×2 (04:36→20:00)
[2022-05-02] MEDS: HEPARIN SODIUM 5,000 UNITS/ML VIAL 5000 UNITS SUB-Q ×3 (05:10→21:10)
[2022-05-02 05:52] LABS: Basophils Absolute Auto 0.1 K/mm3 (0.0-0.1); Basophils Percent Auto 0.9 % (0.2-1.2); Eosinophils Absolute Auto 0.5 K/mm3 (0-0.3); Eosinophils Percent Auto 9.1 % (0-4.4); Hematocrit 36.9 % (37.0-47.0); Hemoglobin 11.5 g/dL (12.0-15.0); Immature Granulocyte Absolute 0.04 K/mm3 (0.00-0.031); Immature Granulocyte Percent A 0.7 % (0-0.5); Lymphocytes Absolute Auto 2.05 K/mm3 (0.9-3.2); Lymphocytes Percent Auto 38.2 % (18.3-44.2); Mean Corpuscular HGB Conc 31.2 g/dl (32-36); Mean Corpuscular Hemoglobin 29.4 pg (26-34); Mean Corpuscular Volume 94.4 fl (80-100); Monocytes Absolute Auto 0.5 K/mm3 (0.1-0.6); Monocytes Percent Auto 10.1 % (2.6-8.5); Neutrophils Absolute Auto 2.2 K/mm3 (1.3-6.7); Platelet Count Result 225 k/mm3 (150-375); Red Blood Count 3.91 M/mm3 (4.2-5.4); Red Cell Distribution Width 13.5 % (11.5-14.5); White Blood Count 5.4 K/mm3 (4.5-10.0)
[2022-05-02 06:03] LABS: Alanine Aminotransferase 12 U/L (6-35); Albumin Level 3.6 g/dL (3.5-5.1); Alkaline Phosphatase 69 U/L (38-126); Anion Gap 9 mmol/L (8-16); Aspartate Amino Transferase 21 U/L (14-36); Bilirubin,Total 0.3 mg/dL (0.2-1.3); Blood Urea Nitrogen 16 mg/dL (7-17); Carbon Dioxide 27 mmol/L (22-30); Chloride 99 mmol/L (98-107); Estimated CRCL calculation 39 ml/min; Estimated Glomerular Filt Rate 48; Glucose 93 mg/dL (65-110); Potassium 3.9 mmol/L (3.4-5.0); Sodium 135 mmol/L (137-145)
--- NOTE | 2022-05-02 08:29 | P.PNIM_ITS ---
Progress Note: A&P Assessment and Plan (1) Pneumothorax after biopsy: Code(s): J95.811 - Postprocedural pneumothorax Status: Acute Assessment and Plan: - As noted per CXR this AM, there has been interval increase in size of Pneumothorax to 6.5 cm. Radiology recommending chest tube. - Physical exam correlates with Radiology findings. - Pt. with more labored breathing. - Consult Gen Sgy for assist with Chest tube placement. - Continue to monitor respiratory status and check serial CXR's. - Continue to monitor SPO2 and VS. - Pt's spouse, Jaguar was updated on the patient's change in condition and the need and purpose of a chest tube in this given situation. (2) Sepsis: Qualifiers: Acute respiratory failure type: with hypoxia Sepsis acute organ dysfunction status: with acute organ dysfunction Sepsis type: sepsis due to unspecified organism Severe sepsis acute organ dysfunction type: acute respiratory failure Severe sepsis shock status: without septic shock Qualified Code(s): A41.9 - Sepsis, unspecified organism; R65.20 - Severe sepsis without septic shock; J96.01 - Acute respiratory failure with hypoxia Code(s): A41.9 - Sepsis, unspecified organism Status: Acute Assessment and Plan: * HR>90, WBC> 12, lactic acid 4.7, and suspected aspiration pneumonia. Lactic acidosis presence is concerning for severe sepsis, however, it may also be elevated d/t hypoxia on presentation. * qSOFA score 1, not high risk * Fluids stopped a * blood cultures x2, NGTD, final report with no growth. * Procalcitonin 0.1. * Repeat lactic acid was 1.8, Lactic acidosis resolved. * Urine culture showed no growth, abx stopped. * Continue antibiotics as sputum culture has gram positive cocci, final growth negative. * Hypoxia and mildly elevated serum creatinine (unknown baseline) resolved and returned to normal today. * No longer meeting sepsis criteria on 05/02/22. She is currently maintaining her oxygen saturations on room air even despite having an acute post-procedure pneumothorax. (3) Hypoxia: Code(s): R09.02 - Hypoxemia Status: Resolved Assessment and Plan: - Oxygen weaned to room air. * Continue O2, wean as tolerated. * Add incentive spirometry. * Probably from the nodule in the left upper lobe * CTA of the chest 2.3cm nodule in the left upper lobe * Biopsy ordered * Consult oncology for further recommendation * 05/02/22 COntinue incentive spirometry after Chest tube is placed. * 05/02/22 Biopsy performed yesterday and pt. has a subsequent pneumothorax. (4) Hyponatremia: Code(s): E87.1 - Hypo-osmolality and hyponatremia Status: Resolved Assessment and Plan: * Resolving * Sodium 128 on admission, currently 133 * Noted Lethargy AOx3. Likely 2/2 hypovolemia as creatinine is mildly elevated. * Continue to trend labs * Urine studies ordered ur sodium 98, Ur urea 207, Ur creatinine 24.6 * Stable - 05/02/22, resolved. (5) Generalized weakness: Code(s): R53.1 - Weakness Status: Acute Assessment and Plan: - Continue on 05/02/22. * PT/OT eval * Fall precautions (6) Dysphagia: Qualifiers: Dysphagia type: unspecified Qualified Code(s): R13.10 - Dysphagia, unspecified Code(s): R13.10 - Dysphagia, unspecified Status: Chronic Assessment and Plan: * H/O dysphagia following stroke. She reports eating bite-sized diet with thin liquids.
--- NOTE | 2022-05-02 08:29 | PM.IMPN ---
Progress Note: A&P Assessment and Plan (1) Pneumothorax after biopsy: Code(s): J95.811 - Postprocedural pneumothorax Status: Acute Assessment and Plan: - As noted per CXR this AM, there has been interval increase in size of Pneumothorax to 6.5 cm. Radiology recommending chest tube. - Physical exam correlates with Radiology findings. - Pt. with more labored breathing. - Consult Gen Sgy for assist with Chest tube placement. - Continue to monitor respiratory status and check serial CXR's. - Continue to monitor SPO2 and VS. - Pt's spouse, Jaguar was updated on the patient's change in condition and the need and purpose of a chest tube in this given situation. (2) Sepsis: Qualifiers: Acute respiratory failure type: with hypoxia Sepsis acute organ dysfunction status: with acute organ dysfunction Sepsis type: sepsis due to unspecified organism Severe sepsis acute organ dysfunction type: acute respiratory failure Severe sepsis shock status: without septic shock Qualified Code(s): A41.9 - Sepsis, unspecified organism; R65.20 - Severe sepsis without septic shock; J96.01 - Acute respiratory failure with hypoxia Code(s): A41.9 - Sepsis, unspecified organism Status: Acute Assessment and Plan: HR>90, WBC> 12, lactic acid 4.7, and suspected aspiration pneumonia. Lactic acidosis presence is concerning for severe sepsis, however, it may also be elevated d/t hypoxia on presentation. qSOFA score 1, not high risk Fluids stopped a blood cultures x2, NGTD, final report with no growth. Procalcitonin 0.1. Repeat lactic acid was 1.8, Lactic acidosis resolved. Urine culture showed no growth, abx stopped. Continue antibiotics as sputum culture has gram positive cocci, final growth negative. Hypoxia and mildly elevated serum creatinine (unknown baseline) resolved and returned to normal today. No longer meeting sepsis criteria on 05/02/22. She is currently maintaining her oxygen saturations on room air even despite having an acute post-procedure pneumothorax. (3) Hypoxia: Code(s): R09.02 - Hypoxemia Status: Resolved Assessment and Plan: - Oxygen weaned to room air. Continue O2, wean as tolerated. Add incentive spirometry. Probably from the nodule in the left upper lobe CTA of the chest 2.3cm nodule in the left upper lobe Biopsy ordered Consult oncology for further recommendation 05/02/22 COntinue incentive spirometry after Chest tube is placed. 05/02/22 Biopsy performed yesterday and pt. has a subsequent pneumothorax. (4) Hyponatremia: Code(s): E87.1 - Hypo-osmolality and hyponatremia Status: Resolved Assessment and Plan: Resolving Sodium 128 on admission, currently 133 Noted Lethargy AOx3. Likely 2/2 hypovolemia as creatinine is mildly elevated. Continue to trend labs Urine studies ordered ur sodium 98, Ur urea 207, Ur creatinine 24.6 Stable - 05/02/22, resolved. (5) Generalized weakness: Code(s): R53.1 - Weakness Status: Acute Assessment and Plan: - Continue on 05/02/22. PT/OT eval Fall precautions (6) Dysphagia: Qualifiers: Dysphagia type: unspecified Qualified Code(s): R13.10 - Dysphagia, unspecified Code(s): R13.10 - Dysphagia, unspecified Status: Chronic Assessment and Plan: H/O dysphagia following stroke. She reports eating bite-sized diet with thin liquids. +moist cough and subjective report of coughing with eating/drinking. Consult speech therapy. Advance diet to recommendations from speech Soft and bite sized with thin liquids Not really convenience that this is aspiration related HOB>30. Aspiration precautions. (7) Frequent urinary tract infections: Code(s): N39.0 - Urinary tract infection, site not specified Status: Chronic Assessment and Plan: UA does appear to be infecti
[2022-05-02] MEDS: BRINZOLAMIDE 1% OPHTH SUSP 10 ML 1 DROP LEFT EYE ×2 (08:51→21:14)
[2022-05-02] MEDS: LIDOCAINE 5% PATCH 1 PATCH TRANSDERM (08:53)
[2022-05-02] MEDS: FLUTICASONE PROPIONATE 0.05% NA SPR 16 GM BTL (*BKC) 1 SPRAY NASAL (08:53)
[2022-05-02] MEDS: PANTOPRAZOLE 40 MG TABLET PO (08:53)
[2022-05-02] MEDS: FERROUS SULFATE 324 MG TABLET PO ×2 (08:53→17:20)
[2022-05-02] MEDS: polyethylene glycoL 3350 17 GM POWD.PACK PO (08:53)
[2022-05-02] MEDS: BRIMONIDINE TARTRATE 0.2% OP SOLN 5 ML BTL 1 DROP LEFT EYE ×2 (09:01→21:14)
[2022-05-02] MEDS: ALBUTEROL SULFATE NEB 2.5 MG/0.5 ML INH (10:12)
--- NOTE | 2022-05-02 10:17 | PM.CNGS ---
Assessment and Plan Assessment and plan (1) Pneumothorax after biopsy: Code(s): J95.811 - Postprocedural pneumothorax Status: Acute Assessment and Plan: large left pneumothorax with history labored breathing and left chest pain. This is following image guided needle biopsy of a left upper lobe nodule yesterday. Will go ahead with placement of a left chest tube. I explained the procedure, risks, benefits to the patient. I explained how long generally the tube is needed to be in place. All questions were answered. She understands and agrees to go ahead. (2) Lung nodule: Code(s): R91.1 - Solitary pulmonary nodule Status: Acute (3) Pneumonia: Qualifiers: Aspiration pneumonia type: unspecified Laterality: unspecified laterality Lung location: unspecified part of lung Pneumonia type: aspiration pneumonia Qualified Code(s): J69.0 - Pneumonitis due to inhalation of food and vomit Code(s): J18.9 - Pneumonia, unspecified organism Status: Acute (4) Dysphagia: Qualifiers: Dysphagia type: unspecified Qualified Code(s): R13.10 - Dysphagia, unspecified Code(s): R13.10 - Dysphagia, unspecified Status: Chronic History of Present Illness Consult details Consult date: 05/02/22 Reason for consult: chest tube Requesting physician: Christiane Cotton APN-C Narrative: patient is an 81-year-old woman who was admitted 4 days ago with sepsis and left-sided pneumonia. She has been treated for this and subsequently a left upper lobe lung nodule was found. Yesterday she had CT-guided biopsy of this lung nodule. Following the biopsy she had a small pneumothorax which has been enlarging. Today it is considerably larger and she has some labored breathing, shortness of breath. Patient is seen now in consultation for left pneumothorax. She is not on anticoagulation. Review of Systems Review of Systems: All systems reviewed & are unremarkable except as noted in HPI and below ( HPI and those items noted below) Constitutional: Constitutional: Denies chills and Denies fever(s) Cardiovascular: Cardiovascular: Reports as per HPI, Reports chest pain, Denies diaphoresis, Denies claudication, Reports dyspnea, Reports orthopnea and Denies slow heart rate Respiratory: Respiratory: Reports as per HPI, Denies chest congestion, Denies cough, Denies hemoptysis, Denies pain with cough and Reports dyspnea Gastrointestinal: Gastrointestinal: Denies abdominal pain, Denies nausea and Denies vomiting Integumentary/Breasts: Skin/Breast: Denies lesions and Denies rash Neurologic: Comments: patient has history of stroke and has dysphagia [facility] Past Medical History Medical History (Updated 05/02/22 @ 09:01 by SEVEN Segundo) Breast CA Chronic constipation Cognitive communication deficit CVA (cerebral vascular accident) Dysphagia Extended spectrum beta lactamase (ESBL) resistance Frequent urinary tract infections Hypercholesterolemia Hypertension Surgical History Surgical History (Updated 04/28/22 @ 13:31 by Iris Prince APRN) History of cataract surgery History of knee replacement Family History Family History (Updated 04/28/22 @ 13:31 by Iris Prince APRN) Mother Family history of malignant neoplasm Lung cancer Social History Social History (Updated 04/28/22 @ 13:32 by Iris Prince APRN) Social History: Patient is a full code. Smoking status: Never smoker Alcohol intake: never Substance use: never Substance use type: does not use Living arrangements: fpc Additional living arrangements comments: [facility], lived with spouse previously Spiritual care concerns: No Meds Home Medications and Allergies Home Medications Medication Instructions Recorded Confirmed Type acetaminophen 500 mg capsule 500 mg PO Q6H PRN Pain 1-3 04/28/22 04/28/22 History aspirin 81 mg capsule 81 mg PO DAILY
--- NOTE | 2022-05-02 10:28 | W.PM.PROC2 ---
Procedure Note - Detailed Date of Procedure 05/02/22 Pre-op Diagnosis Left pneumothorax Post-op Diagnosis Same Procedure Performed placement left chest tube Surgeon Zachary Mak MD Anesthesia Local ( 1% lidocaine) Indications patient had a lung biopsy yesterday and has an increasing, now large left pneumothorax with symptoms. She is having a chest tube placed at bedside Findings postprocedure chest x-ray viewed on the x-ray machine image shows full re-expansion and chest tube in good position Description of Procedure the patient was at her bedside with head of bed elevated about 30?. The left anterior upper chest was prepped with chlorhexidine. Sterile draping was carried out. Local anesthetic was infiltrated over the 5th rib in the midclavicular line. Incision was made. Additional local was infiltrated. A full 40 cc of local anesthetic was used. A tunnel was created aiming cephalad. We entered the chest just above the 5th rib. I then placed a 28 Austrian trocar chest tube into the pleural space. The chest tube was directed towards the apex of the lung. The trocar was removed. Air was coming forth out of the chest tube. The chest tube was attached to Pleur-Evac. 0 silk suture was used to secure the chest tube to the skin. A sterile occlusive dressing was placed over the chest tube. Pleur-evac was placed to 20 cm water suction. Patient tolerated the procedure well. Estimated Blood Loss -2 Urine Output 100 Drains Yes ( Left chest tube) Packing No Pathology None sent Complications No immediate complications Condition Stable Disposition No change [facility] Billing Surgery - Charge Forward: Surgery Billing ( placement left chest tube)
[2022-05-02] MEDS: MORPHINE SULFATE (*CRX) 2 MG/ML INJ IV PUSH (10:33)
[2022-05-02] MEDS: HYDROcodone/acetaminophen (*CRX) 7.5-325 MG TABLET 1 TAB PO (14:11)
[2022-05-02] MEDS: ALBUTEROL SULFATE NEB 2.5 MG/0.5 ML INH 5 MG ×2 (14:49→18:34)
[2022-05-02] MEDS: SENNA/DOCUSATE SODIUM TABLET 1 TAB PO (21:09)
[2022-05-02] MEDS: LATANOPROST 0.005% OP SOLN 2.5 ML BTL 1 DROP EACH EYE (21:13)
[2022-05-03] VITALS (17 sets, daily range): BP systolic 103–152; BP diastolic 56–72; PULSE 69–91; RESP 12–18; TEMP 36.1–36.6; O2SAT 92–98
[2022-05-03 00:56] LABS: Legionella pneumophila Ag Ur Not Detected (Not Detected)
[2022-05-03] MEDS: ALBUTEROL SULFATE NEB 2.5 MG/3 ML INH 5 MG INHALATION (02:14)
[2022-05-03] MEDS: HEPARIN SODIUM 5,000 UNITS/ML VIAL 5000 UNITS SUB-Q ×3 (05:16→21:13)
[2022-05-03 06:16] LABS: Basophils Percent Auto 0.7 % (0.2-1.2); Eosinophils Absolute Auto 0.5 K/mm3 (0-0.3); Eosinophils Percent Auto 8.9 % (0-4.4); Hematocrit 36.9 % (37.0-47.0); Hemoglobin 11.1 g/dL (12.0-15.0); Immature Granulocyte Absolute 0.05 K/mm3 (0.00-0.031); Immature Granulocyte Percent A 0.9 % (0-0.5); Lymphocytes Absolute Auto 1.71 K/mm3 (0.9-3.2); Lymphocytes Percent Auto 29.7 % (18.3-44.2); Mean Corpuscular HGB Conc 30.1 g/dl (32-36); Mean Corpuscular Hemoglobin 29.1 pg (26-34); Mean Corpuscular Volume 96.6 fl (80-100); Monocytes Absolute Auto 0.6 K/mm3 (0.1-0.6); Neutrophils Absolute Auto 2.8 K/mm3 (1.3-6.7); Neutrophils Percent Auto 48.8 % (45.5-73.1); Nucleated Red Blood Cells Perc 0.5 % (0.0-0.2); Platelet Count Result 201 k/mm3 (150-375); Red Blood Count 3.82 M/mm3 (4.2-5.4); Red Cell Distribution Width 13.8 % (11.5-14.5); White Blood Count 5.8 K/mm3 (4.5-10.0)
[2022-05-03 06:31] LABS: Alanine Aminotransferase 11 U/L (6-35); Albumin Level 3.3 g/dL (3.5-5.1); Alkaline Phosphatase 67 U/L (38-126); Anion Gap 10 mmol/L (8-16); Aspartate Amino Transferase 17 U/L (14-36); Bilirubin,Total 0.3 mg/dL (0.2-1.3); Blood Urea Nitrogen 15 mg/dL (7-17); Calcium 9.2 mg/dL (8.4-10.2); Carbon Dioxide 26 mmol/L (22-30); Chloride 99 mmol/L (98-107); Estimated CRCL calculation 36 ml/min; Estimated Glomerular Filt Rate 43; Glucose 95 mg/dL (65-110); Potassium 4.6 mmol/L (3.4-5.0); Sodium 135 mmol/L (137-145)
[2022-05-03] MEDS: BRINZOLAMIDE 1% OPHTH SUSP 10 ML 1 DROP LEFT EYE ×2 (08:55→21:13)
[2022-05-03] MEDS: LIDOCAINE 5% PATCH 1 PATCH TRANSDERM (08:56)
[2022-05-03] MEDS: FLUTICASONE PROPIONATE 0.05% NA SPR 16 GM BTL (*BKC) 1 SPRAY NASAL (08:57)
[2022-05-03] MEDS: FERROUS SULFATE 324 MG TABLET PO ×2 (08:57→17:17)
[2022-05-03] MEDS: polyethylene glycoL 3350 17 GM POWD.PACK PO (08:57)
[2022-05-03] MEDS: PANTOPRAZOLE 40 MG TABLET PO (08:57)
[2022-05-03] MEDS: HYDROcodone/acetaminophen (*CRX) 7.5-325 MG TABLET 1 TAB PO ×2 (09:00→13:26)
[2022-05-03] MEDS: BRIMONIDINE TARTRATE 0.2% OP SOLN 5 ML BTL 1 DROP LEFT EYE ×2 (09:04→21:13)
--- NOTE | 2022-05-03 10:02 | PM.IMPN ---
Progress Note: A&P Assessment and Plan (1) Pneumothorax after biopsy: Code(s): J95.811 - Postprocedural pneumothorax Status: Acute Assessment and Plan: - As noted per CXR this AM, there has been interval increase in size of Pneumothorax to 6.5 cm. Radiology recommending chest tube. - Physical exam correlates with Radiology findings. - Pt. with more labored breathing. - Consult Gen Subramanian for assist with Chest tube placement. - Continue to monitor respiratory status and check serial CXR's. - Continue to monitor SPO2 and VS. - Pt's spouse, Jaguar was updated on the patient's change in condition and the need and purpose of a chest tube in this given situation. - 05/03/22: Pt. with some post procedural pain/discomfort that is to be expected. Repeat CXR this AM demonstrates trace to mild Subcutaneous emphysema on the affected side of chest. Medicine appreciates the co-management of Gen Subramanian and Dr. Mak, and we will follow their lead on when to remove Chest tube. Will order CXR for AM. (2) Sepsis: Qualifiers: Sepsis type: sepsis due to unspecified organism Sepsis acute organ dysfunction status: with acute organ dysfunction Severe sepsis acute organ dysfunction type: acute respiratory failure Acute respiratory failure type: with hypoxia Severe sepsis shock status: without septic shock Qualified Code(s): A41.9 - Sepsis, unspecified organism; R65.20 - Severe sepsis without septic shock; J96.01 - Acute respiratory failure with hypoxia Code(s): A41.9 - Sepsis, unspecified organism Status: Acute Assessment and Plan: HR>90, WBC> 12, lactic acid 4.7, and suspected aspiration pneumonia. Lactic acidosis presence is concerning for severe sepsis, however, it may also be elevated d/t hypoxia on presentation. qSOFA score 1, not high risk Fluids stopped a blood cultures x2, NGTD, final report with no growth. Procalcitonin 0.1. Repeat lactic acid was 1.8, Lactic acidosis resolved. Urine culture showed no growth, abx stopped. Continue antibiotics as sputum culture has gram positive cocci, final growth negative. Hypoxia and mildly elevated serum creatinine (unknown baseline) resolved and returned to normal today. No longer meeting sepsis criteria on 05/02/22. She is currently maintaining her oxygen saturations on room air even despite having an acute post-procedure pneumothorax. - 05/03/22 - Rocephin and Azithromycin for the read of the CXR this morning that demonstrates possible BLL infiltrates, although pt. is not appearing to be acutely ill. We will continue to monitor her overall respiratory status. Repeat labs in AM. Sputum, blood, urine and MRSA cultures are all negative. No longer meeting sepsis criteria. (3) Hypoxia: Code(s): R09.02 - Hypoxemia Status: Resolved Assessment and Plan: - Oxygen weaned to room air. Continue O2, wean as tolerated. Add incentive spirometry. Probably from the nodule in the left upper lobe CTA of the chest 2.3cm nodule in the left upper lobe Biopsy ordered Consult oncology for further recommendation 05/02/22 COntinue incentive spirometry after Chest tube is placed. 05/02/22 Biopsy performed yesterday and pt. has a subsequent pneumothorax. - 05/03/22 - Resolved. Pt. is holding her own oxygen level at 92%. We will continue to monitor this. (4) Hyponatremia: Code(s): E87.1 - Hypo-osmolality and hyponatremia Status: Resolved Assessment and Plan: Resolving Sodium 128 on admission, currently 133 Noted Lethargy AOx3. Likely 2/2 hypovolemia as creatinine is mildly elevated. Continue to trend labs Urine studies ordered ur sodium 98, Ur urea 207, Ur creatinine 24.6 Stable - 05/02/22, resolved. (5) Generalized weakness: Code(s): R53.1 - Weakness Status: Acute Assessment and Plan: - Continue on 05/02/22. PT/OT eval Fall precautions - 05/03/22 - Continue PT during hospitalizat
[2022-05-03] MEDS: ALBUTEROL SULFATE NEB 2.5 MG/0.5 ML INH 5 MG ×2 (13:08→18:35)
--- NOTE | 2022-05-03 13:41 | PM.PNGS ---
Progress Note: A&P Assessment and Plan (1) Pneumothorax after biopsy: Code(s): J95.811 - Postprocedural pneumothorax Status: Acute Assessment and Plan: no pleural leak and no pneumothorax after chest tube placement yesterday. Will continue chest tube to 20 cm water suction today. Check chest x-ray on water seal tomorrow morning. If all goes well, can probably remove chest tube on Wednesday. (2) Lung nodule: Code(s): R91.1 - Solitary pulmonary nodule Status: Acute Assessment and Plan: Pathology pending Subjective Subjective Date/Time Seen: 05/03/22 13:41 Patient reports: feels better, pain is less and afebrile Review of Systems Review of Systems: All systems reviewed & are unremarkable except as noted in HPI and below (HPI and those items noted below) Constitutional: Constitutional: Denies chills and Denies fever(s) Respiratory: Respiratory: Reports pain with cough ( at chest tube site) and Denies dyspnea Objective Data Vital Signs Vital Signs: Vital Signs - 24 hr 05/02/22 14:50 05/02/22 14:54 05/02/22 15:07 Temperature 36.5 C Pulse Rate 71 74 81 Respiratory Rate 12 12 20 Blood Pressure 121/56 L Pulse Oximetry 94 Oxygen Delivery 05/02/22 16:00 05/02/22 18:35 05/02/22 18:38 Temperature Pulse Rate 79 89 76 Respiratory Rate 12 12 Blood Pressure Pulse Oximetry Oxygen Delivery 05/02/22 19:36 05/02/22 20:00 05/02/22 20:15 Temperature 36.8 C Pulse Rate 91 90 88 Respiratory Rate 14 20 Blood Pressure 162/62 H Pulse Oximetry 94 Oxygen Delivery 05/02/22 21:59 05/02/22 20:25 05/03/22 00:00 Temperature Pulse Rate 80 79 Respiratory Rate 20 Blood Pressure Pulse Oximetry 93 Oxygen Delivery Room Air 05/03/22 02:14 05/03/22 04:00 05/03/22 05:19 Temperature 36.6 C Pulse Rate 80 74 86 Respiratory Rate 14 16 Blood Pressure 152/72 H Pulse Oximetry 92 Oxygen Delivery 05/03/22 08:00 05/03/22 08:01 05/03/22 12:05 Temperature Pulse Rate 82 87 Respiratory Rate Blood Pressure Pulse Oximetry Oxygen Delivery Room Air 05/03/22 13:09 05/03/22 13:14 Temperature Pulse Rate 91 89 Respiratory Rate 14 12 Blood Pressure Pulse Oximetry Oxygen Delivery Intake/Output Intake/Output: Intake & Output 04/30/22 05/01/22 05/02/22 05/03/22 23:59 23:59 23:59 23:59 Intake Total 3145 730 720 730 Output Total 100 150 100 Balance 3045 580 620 730 Meds/Results Medications: Active Medications Generic Name Dose Route Start Last Admin Trade Name Freq PRN Reason Stop Dose Admin Acetaminophen 1,000 mg 05/01/22 10:50 05/01/22 20:05 Acetaminophen 500 Mg Tablet PO 1,000 mg Q6H PRN Administration Pain Acetaminophen 500 mg 05/02/22 10:14 Acetaminophen 500 Mg Tablet PO Q6H PRN Mild Pain (1-3) or Fever Hydrocodone Bitart/Acetaminophen 1 tab 05/02/22 10:14 Hydrocodone/Acetaminophen (*Crx) 5-325 Mg Tablet PO Q4H PRN Pain Rated 4-6 Hydrocodone Bitart/Acetaminophen 1 tab 05/02/22 10:14 05/03/22 13:26 Hydrocodone/Acetaminophen (*Crx) 7.5-325 Mg Tablet PO 1 tab Q4H PRN Administration Pain Rated 7-10 Albuterol 5 mg 04/28/22 14:00 05/03/22 02:14 Albuterol Sulfate Neb 2.5 Mg/3 Ml Inh INHALATION 5 mg Q6HRT JONY Administration Albuterol 2.5 mg 05/02/22 12:00 Albuterol Sulfate Neb 2.5 Mg/3 Ml Inh INHALATION Q4HRT PRN Shortness Of Breath Brimonidine Tartrate 1 drop 04/28/22 21:00 05/03/22 09:04 Brimonidine Tartrate 0.2% Op Soln 5 Ml Btl LEFT EYE 1 drop Q12HR JONY Administration Brinzolamide 1 drop 04/28/22 21:00 05/03/22 08:55 Brinzolamide 1% Ophth Susp 10 Ml LEFT EYE 1 drop Q12HR JONY Administration Ferrous Sulfate 324 mg 04/30/22 08:00 05/03/22 08:57 Ferrous Sulfate 324 Mg Tablet PO 324 mg BIDWM JONY Administration Fluticasone Propionate 1 spray 04/29/22 09:00 09
[2022-05-03 16:20] LABS: Osmolality, Urine 319 mOsm/kg (50-1200)
[2022-05-03] MEDS: ALBUTEROL SULFATE NEB 2.5 MG/3 ML INH 1.25 MG INHALATION (20:37)
[2022-05-03] MEDS: HYDROcodone/acetaminophen (*CRX) 5-325 MG TABLET 1 TAB PO (21:12)
[2022-05-03] MEDS: SENNA/DOCUSATE SODIUM TABLET 1 TAB PO (21:12)
[2022-05-03] MEDS: LATANOPROST 0.005% OP SOLN 2.5 ML BTL 1 DROP EACH EYE (21:13)
[2022-05-04] VITALS (16 sets, daily range): BP systolic 109–141; BP diastolic 40–72; PULSE 68–83; RESP 16–22; TEMP 36.3–36.7; O2SAT 92–99
[2022-05-04] MEDS: HYDROcodone/acetaminophen (*CRX) 7.5-325 MG TABLET 1 TAB PO ×2 (01:05→06:21)
[2022-05-04] MEDS: ALBUTEROL SULFATE NEB 2.5 MG/3 ML INH 5 MG INHALATION ×3 (02:00→13:03)
[2022-05-04 05:19] LABS: Basophils Absolute Auto 0.1 K/mm3 (0.0-0.1); Eosinophils Absolute Auto 0.5 K/mm3 (0-0.3); Eosinophils Percent Auto 8.7 % (0-4.4); Hematocrit 33.7 % (37.0-47.0); Hemoglobin 10.6 g/dL (12.0-15.0); Immature Granulocyte Absolute 0.09 K/mm3 (0.00-0.031); Immature Granulocyte Percent A 1.5 % (0-0.5); Lymphocytes Absolute Auto 2.25 K/mm3 (0.9-3.2); Lymphocytes Percent Auto 36.8 % (18.3-44.2); Mean Corpuscular HGB Conc 31.5 g/dl (32-36); Mean Corpuscular Hemoglobin 29.5 pg (26-34); Mean Corpuscular Volume 93.9 fl (80-100); Mean Platelet Volume 9.2 fl (7.4-10.4); Monocytes Absolute Auto 0.7 K/mm3 (0.1-0.6); Monocytes Percent Auto 12.1 % (2.6-8.5); Neutrophils Absolute Auto 2.5 K/mm3 (1.3-6.7); Neutrophils Percent Auto 39.9 % (45.5-73.1); Platelet Count Result 188 k/mm3 (150-375); Red Blood Count 3.59 M/mm3 (4.2-5.4); Red Cell Distribution Width 13.7 % (11.5-14.5); White Blood Count 6.1 K/mm3 (4.5-10.0)
[2022-05-04 05:28] LABS: Alanine Aminotransferase 12 U/L (6-35); Alkaline Phosphatase 62 U/L (38-126); Anion Gap 7 mmol/L (8-16); Aspartate Amino Transferase 18 U/L (14-36); Bilirubin,Total 0.3 mg/dL (0.2-1.3); Blood Urea Nitrogen 14 mg/dL (7-17); Calcium 9.1 mg/dL (8.4-10.2); Carbon Dioxide 24 mmol/L (22-30); Chloride 100 mmol/L (98-107); Estimated CRCL calculation 43 ml/min; Estimated Glomerular Filt Rate 53; Glucose 95 mg/dL (65-110); Magnesium 2.1 mg/dL (1.6-2.3); Sodium 131 mmol/L (137-145)
[2022-05-04] MEDS: HEPARIN SODIUM 5,000 UNITS/ML VIAL 5000 UNITS SUB-Q ×3 (06:09→21:02)
[2022-05-04] MEDS: FERROUS SULFATE 324 MG TABLET PO ×2 (08:23→16:32)
[2022-05-04] MEDS: FLUTICASONE PROPIONATE 0.05% NA SPR 16 GM BTL (*BKC) 1 SPRAY NASAL (08:23)
[2022-05-04] MEDS: LIDOCAINE 5% PATCH 1 PATCH TRANSDERM (08:24)
[2022-05-04] MEDS: BRIMONIDINE TARTRATE 0.2% OP SOLN 5 ML BTL 1 DROP LEFT EYE ×2 (08:24→21:01)
[2022-05-04] MEDS: BRINZOLAMIDE 1% OPHTH SUSP 10 ML 1 DROP LEFT EYE ×2 (08:24→21:02)
[2022-05-04] MEDS: PANTOPRAZOLE 40 MG TABLET PO (08:25)
[2022-05-04] MEDS: polyethylene glycoL 3350 17 GM POWD.PACK PO (08:25)
[2022-05-04] MEDS: ACETAMINOPHEN 500 MG TABLET 1000 MG PO ×2 (08:27→16:32)
--- NOTE | 2022-05-04 11:15 | PM.IMPN ---
Progress Note: A&P Assessment and Plan (1) Pneumothorax after biopsy: Code(s): J95.811 - Postprocedural pneumothorax Status: Acute Assessment and Plan: - As noted per CXR this AM, there has been interval increase in size of Pneumothorax to 6.5 cm. Radiology recommending chest tube. - Physical exam correlates with Radiology findings. - Pt. with more labored breathing. - Consult Gen Subramanian for assist with Chest tube placement. - Continue to monitor respiratory status and check serial CXR's. - Continue to monitor SPO2 and VS. - Pt's spouse, Jaguar was updated on the patient's change in condition and the need and purpose of a chest tube in this given situation. - 05/03/22: Pt. with some post procedural pain/discomfort that is to be expected. Repeat CXR this AM demonstrates trace to mild Subcutaneous emphysema on the affected side of chest. Medicine appreciates the co-management of Gen Subramanian and Dr. Mak, and we will follow their lead on when to remove Chest tube. Will order CXR for AM. - 05/04/22: CXR this AM demonstrates unchanged results from yesterday. Pt. has stable and unlabored breathing at this time with a mild cough. Surgery DONATO at bedside also, plan is to possibly pull chest tube tomorrow. (2) Sepsis: Qualifiers: Sepsis type: sepsis due to unspecified organism Sepsis acute organ dysfunction status: with acute organ dysfunction Severe sepsis acute organ dysfunction type: acute respiratory failure Acute respiratory failure type: with hypoxia Severe sepsis shock status: without septic shock Qualified Code(s): A41.9 - Sepsis, unspecified organism; R65.20 - Severe sepsis without septic shock; J96.01 - Acute respiratory failure with hypoxia Code(s): A41.9 - Sepsis, unspecified organism Status: Acute Assessment and Plan: HR>90, WBC> 12, lactic acid 4.7, and suspected aspiration pneumonia. Lactic acidosis presence is concerning for severe sepsis, however, it may also be elevated d/t hypoxia on presentation. qSOFA score 1, not high risk Fluids stopped a blood cultures x2, NGTD, final report with no growth. Procalcitonin 0.1. Repeat lactic acid was 1.8, Lactic acidosis resolved. Urine culture showed no growth, abx stopped. Continue antibiotics as sputum culture has gram positive cocci, final growth negative. Hypoxia and mildly elevated serum creatinine (unknown baseline) resolved and returned to normal today. No longer meeting sepsis criteria on 05/02/22. She is currently maintaining her oxygen saturations on room air even despite having an acute post-procedure pneumothorax. - 05/03/22 - Rocephin and Azithromycin for the read of the CXR this morning that demonstrates possible BLL infiltrates, although pt. is not appearing to be acutely ill. We will continue to monitor her overall respiratory status. Repeat labs in AM. Sputum, blood, urine and MRSA cultures are all negative. No longer meeting sepsis criteria. - 05/04/22 - CXR this AM lists PNA as a less likely possiblity and favors more atelectasis. Will continue abx at this time and will have patient begin using IS. Repeat CXR in AM. (3) Hypoxia: Code(s): R09.02 - Hypoxemia Status: Resolved Assessment and Plan: - Oxygen weaned to room air. Continue O2, wean as tolerated. Add incentive spirometry. Probably from the nodule in the left upper lobe CTA of the chest 2.3cm nodule in the left upper lobe Biopsy ordered Consult oncology for further recommendation 05/02/22 COntinue incentive spirometry after Chest tube is placed. 05/02/22 Biopsy performed yesterday and pt. has a subsequent pneumothorax. - 05/03/22 - Resolved. Pt. is holding her own oxygen level at 92%. We will continue to monitor this. (4) Hyponatremia: Code(s): E87.1 - Hypo-osmolality and hyponatremia Status: Resolved Assessment and Plan: Resolving Sodium 128 on admission, currently 133 Noted Lethargy AOx3. Likely 2/2 hypovolem
--- NOTE | 2022-05-04 12:09 | PM.PNGS ---
Progress Note: A&P Assessment and Plan (1) Pneumothorax after biopsy: Code(s): J95.811 - Postprocedural pneumothorax Status: Acute Assessment and Plan: CXR this morning was on water seal and showed a stable slight left apical pneumothorax. No evidence of pleural leak. Will keep chest tube to water seal today. Repeat chest x-ray tomorrow morning. May remove chest tube tomorrow if she remains stable. (2) Lung nodule: Code(s): R91.1 - Solitary pulmonary nodule Status: Acute Assessment and Plan: Pathology pending Plan I have discussed the patient's case and plan of care with Dr. Mak. Subjective Subjective Date/Time Seen: 05/04/22 10:09 Patient reports: no new complaints and feels better Interval history: Patient seen and examined. Denies any new changes or acute events overnight. No shortness of breath. Review of Systems Review of Systems: All systems reviewed & are unremarkable except as noted in HPI and below Exam Const: General: comfortable, no acute distress and awake Chest: Chest palpation & inspection: no crepitus Other: Left chest tube on water seal, dressing dry and intact, no air leak Resp: Effort & Inspection: normal respiratory effort and no respiratory distress Auscultation: clear to auscultation bilaterally Cardio: Rate: regular rate Rhythm: regular rhythm Neuro: General: no focal motor deficits and No confusion Psych: Affect: normal affect Thought process: Normal thought process present Objective Data Vital Signs Vital Signs: Vital Signs - 24 hr 05/03/22 13:09 05/03/22 13:14 05/03/22 16:46 Temperature 97.0 F L Pulse Rate 91 89 69 Respiratory Rate 14 12 16 Blood Pressure 107/60 Pulse Oximetry 98 Oxygen Delivery 05/03/22 16:01 05/03/22 18:37 05/03/22 18:30 Temperature Pulse Rate 71 90 90 Respiratory Rate 16 Blood Pressure Pulse Oximetry 95 Oxygen Delivery Room Air 05/03/22 18:38 05/03/22 19:18 05/03/22 20:39 Temperature 97.4 F L Pulse Rate 85 82 75 Respiratory Rate 16 18 16 Blood Pressure 103/56 L Pulse Oximetry 95 Oxygen Delivery 05/03/22 20:00 05/03/22 20:00 05/04/22 00:00 Temperature Pulse Rate 80 72 Respiratory Rate Blood Pressure Pulse Oximetry Oxygen Delivery Room Air 05/04/22 03:24 05/04/22 02:00 05/04/22 02:00 Temperature 97.7 F Pulse Rate 81 79 79 Respiratory Rate 18 16 Blood Pressure 109/40 L Pulse Oximetry 94 99 Oxygen Delivery Room Air 05/04/22 02:17 05/03/22 20:48 05/04/22 04:00 Temperature Pulse Rate 75 75 83 Respiratory Rate 16 18 Blood Pressure Pulse Oximetry Oxygen Delivery 05/04/22 08:00 05/04/22 09:47 05/04/22 08:50 Temperature Pulse Rate 68 78 Respiratory Rate 16 Blood Pressure Pulse Oximetry Oxygen Delivery Room Air Intake/Output Intake/Output: Intake & Output 05/01/22 05/02/22 05/03/22 05/04/22 23:59 23:59 23:59 23:59 Intake Total 624 397 9916 640 Output Total 150 100 25 Balance 463 895 6623 640 Meds/Results Medications: Active Medications Generic Name Dose Route Start Last Admin Trade Name Freq PRN Reason Stop Dose Admin Acetaminophen 1,000 mg 05/01/22 10:50 05/04/22 08:27 Acetaminophen 500 Mg Tablet PO 1,000 mg Q6H PRN Administration Pain Acetaminophen 500 mg 05/02/22 10:14 Acetaminophen 500 Mg Tablet PO Q6H PRN Mild Pain (1-3) or Fever Hydrocodone Bitart/Acetaminophen 1 tab 05/02/22 10:14 05/03/22 21:12 Hydrocodone/Acetaminophen (*Crx) 5-325 Mg Tablet PO 1 tab Q4H PRN Administration Pain Rated 4-6 Hydrocodone Bitart/Acetaminophen 1 tab 05/02/22 10:14 05/04/22 06:21 Hydrocodone/Acetaminophen (*Crx) 7.5-325 Mg Tablet PO 1 tab Q4H PRN Administration Pain Rated 7-10 Albuterol 5 mg 04/28/22 14:00 05/04/22 09:51 Albuterol Sulfate Neb 2.5 Mg/3 Ml Inh INHALATION 5 mg Q6HRT JONY Administration A
[2022-05-04] MEDS: ALBUTEROL SULFATE NEB 2.5 MG/0.5 ML INH 5 MG (20:19)
[2022-05-04] MEDS: LATANOPROST 0.005% OP SOLN 2.5 ML BTL 1 DROP EACH EYE (21:01)
[2022-05-04] MEDS: SENNA/DOCUSATE SODIUM TABLET 1 TAB PO (21:03)
[2022-05-05] VITALS (18 sets, daily range): BP systolic 116–132; BP diastolic 57–68; PULSE 73–84; RESP 18–22; TEMP 36.4–36.7; O2SAT 93–97
[2022-05-05] MEDS: ALBUTEROL SULFATE NEB 2.5 MG/3 ML INH 5 MG INHALATION ×4 (02:16→21:09)
[2022-05-05 05:17] LABS: Basophils Absolute Auto 0.1 K/mm3 (0.0-0.1); Basophils Percent Auto 0.9 % (0.2-1.2); Eosinophils Absolute Auto 0.6 K/mm3 (0-0.3); Hematocrit 36.1 % (37.0-47.0); Immature Granulocyte Percent A 1.4 % (0-0.5); Lymphocytes Absolute Auto 1.56 K/mm3 (0.9-3.2); Lymphocytes Percent Auto 21.1 % (18.3-44.2); Mean Corpuscular HGB Conc 30.5 g/dl (32-36); Mean Corpuscular Hemoglobin 29.3 pg (26-34); Monocytes Absolute Auto 0.8 K/mm3 (0.1-0.6); Monocytes Percent Auto 10.1 % (2.6-8.5); Neutrophils Absolute Auto 4.3 K/mm3 (1.3-6.7); Neutrophils Percent Auto 58.5 % (45.5-73.1); Platelet Count Result 204 k/mm3 (150-375); Red Blood Count 3.76 M/mm3 (4.2-5.4); Red Cell Distribution Width 13.5 % (11.5-14.5); White Blood Count 7.4 K/mm3 (4.5-10.0)
[2022-05-05 05:29] LABS: Alanine Aminotransferase 13 U/L (6-35); Albumin Level 3.3 g/dL (3.5-5.1); Alkaline Phosphatase 68 U/L (38-126); Anion Gap 6 mmol/L (8-16); Aspartate Amino Transferase 20 U/L (14-36); Bilirubin,Total 0.3 mg/dL (0.2-1.3); Blood Urea Nitrogen 13 mg/dL (7-17); Calcium 9.5 mg/dL (8.4-10.2); Carbon Dioxide 27 mmol/L (22-30); Chloride 98 mmol/L (98-107); Estimated CRCL calculation 39 ml/min; Estimated Glomerular Filt Rate 48; Glucose 95 mg/dL (65-110); Magnesium 2.2 mg/dL (1.6-2.3); Potassium 4.7 mmol/L (3.4-5.0); Sodium 131 mmol/L (137-145)
[2022-05-05] MEDS: HEPARIN SODIUM 5,000 UNITS/ML VIAL 5000 UNITS SUB-Q ×3 (06:10→20:25)
--- NOTE | 2022-05-05 08:55 | PM.PNGS ---
Progress Note: A&P Assessment and Plan (1) Pneumothorax after biopsy: Code(s): J95.811 - Postprocedural pneumothorax Status: Acute Assessment and Plan: Pneumothorax resolved and no further pleural leak. Chest tube was removed without difficulty. Pending repeat chest x-ray. Discussed with hospitalist. Patient probably will go home day after tomorrow or possibly tomorrow. Dressing to remain dry and intact until Wednesday. (2) Lung nodule: Code(s): R91.1 - Solitary pulmonary nodule Status: Acute Assessment and Plan: Pathology is benign. Subjective Subjective Date/Time Seen: 05/05/22 08:55 Patient reports: no new complaints and afebrile Review of Systems Review of Systems: All systems reviewed & are unremarkable except as noted in HPI and below (HPI) Exam Const: General: comfortable and no acute distress Nutritional Appearance: obese Chest: Chest palpation & inspection: abnormal inspection of the chest ( chest tube dressing dry and intact) Resp: Effort & Inspection: normal respiratory effort, normal respiratory pattern, no grunting and other ( no pleural leaks seen) Auscultation: clear to auscultation bilaterally Objective Data Vital Signs Vital Signs: Vital Signs - 24 hr 05/04/22 09:47 05/04/22 13:03 05/04/22 12:00 Temperature Pulse Rate 78 75 76 Respiratory Rate 16 16 Blood Pressure Pulse Oximetry Oxygen Delivery 05/04/22 13:13 05/04/22 14:00 05/04/22 16:00 Temperature 36.3 C L Pulse Rate 78 83 78 Respiratory Rate 16 18 Blood Pressure 110/52 L Pulse Oximetry 97 Oxygen Delivery 05/04/22 20:22 05/04/22 20:22 05/04/22 20:00 Temperature Pulse Rate 76 76 78 Respiratory Rate 20 20 Blood Pressure Pulse Oximetry 92 Oxygen Delivery Room Air 05/04/22 20:35 05/04/22 21:52 05/05/22 00:00 Temperature 36.7 C Pulse Rate 78 77 78 Respiratory Rate 22 H 18 Blood Pressure 141/72 H Pulse Oximetry 95 Oxygen Delivery 05/05/22 02:20 05/05/22 02:28 05/05/22 04:00 Temperature Pulse Rate 77 81 76 Respiratory Rate 22 H 22 H Blood Pressure Pulse Oximetry Oxygen Delivery 05/05/22 06:00 05/05/22 08:25 05/05/22 08:25 Temperature 36.4 C Pulse Rate 82 79 Respiratory Rate 18 22 H Blood Pressure 132/57 L Pulse Oximetry 96 97 Oxygen Delivery Room Air 05/05/22 08:41 Temperature Pulse Rate 84 Respiratory Rate 22 H Blood Pressure Pulse Oximetry Oxygen Delivery Intake/Output Intake/Output: Intake & Output 05/02/22 05/03/22 05/04/22 05/05/22 23:59 23:59 23:59 23:59 Intake Total 720 1520 1820 240 Output Total 100 25 Balance 620 1495 1820 240 Meds/Results Medications: Active Medications Generic Name Dose Route Start Last Admin Trade Name Freq PRN Reason Stop Dose Admin Acetaminophen 1,000 mg 05/01/22 10:50 05/04/22 16:32 Acetaminophen 500 Mg Tablet PO 1,000 mg Q6H PRN Administration Pain Acetaminophen 500 mg 05/02/22 10:14 Acetaminophen 500 Mg Tablet PO Q6H PRN Mild Pain (1-3) or Fever Hydrocodone Bitart/Acetaminophen 1 tab 05/02/22 10:14 05/03/22 21:12 Hydrocodone/Acetaminophen (*Crx) 5-325 Mg Tablet PO 1 tab Q4H PRN Administration Pain Rated 4-6 Hydrocodone Bitart/Acetaminophen 1 tab 05/02/22 10:14 05/04/22 06:21 Hydrocodone/Acetaminophen (*Crx) 7.5-325 Mg Tablet PO 1 tab Q4H PRN Administration Pain Rated 7-10 Albuterol 5 mg 04/28/22 14:00 05/05/22 08:25 Albuterol Sulfate Neb 2.5 Mg/3 Ml Inh INHALATION 5 mg Q6HRT JONY Administration Albuterol 2.5 mg 05/02/22 12:00 Albuterol Sulfate Neb 2.5 Mg/3 Ml Inh INHALATION Q4HRT PRN Shortness Of Breath Brimonidine Tartrate 1 drop 04/28/22 21:00 05/04/22 21:01 Brimonidine Tartrate 0.2% Op Soln 5 Ml Btl LEFT EYE 1 drop Q12HR JONY Administration Brinzolamide 1 drop 04/28/22 21:00 05/04/22 21:02 Brinzolamide 1% Op
[2022-05-05] MEDS: BRINZOLAMIDE 1% OPHTH SUSP 10 ML 1 DROP LEFT EYE ×2 (09:18→20:26)
[2022-05-05] MEDS: LIDOCAINE 5% PATCH 1 PATCH TRANSDERM (09:19)
[2022-05-05] MEDS: PANTOPRAZOLE 40 MG TABLET PO (09:19)
[2022-05-05] MEDS: FERROUS SULFATE 324 MG TABLET PO ×2 (09:19→17:33)
[2022-05-05] MEDS: polyethylene glycoL 3350 17 GM POWD.PACK PO (09:19)
[2022-05-05] MEDS: FLUTICASONE PROPIONATE 0.05% NA SPR 16 GM BTL (*BKC) 1 SPRAY NASAL (09:19)
[2022-05-05] MEDS: BRIMONIDINE TARTRATE 0.2% OP SOLN 5 ML BTL 1 DROP LEFT EYE ×2 (09:23→20:26)
--- NOTE | 2022-05-05 10:30 | PM.IMPN ---
Progress Note: A&P Assessment and Plan (1) Pneumothorax after biopsy: Code(s): J95.811 - Postprocedural pneumothorax Status: Acute Assessment and Plan: - As noted per CXR this AM, there has been interval increase in size of Pneumothorax to 6.5 cm. Radiology recommending chest tube. - Physical exam correlates with Radiology findings. - Pt. with more labored breathing. - Consult Gen Subramanian for assist with Chest tube placement. - Continue to monitor respiratory status and check serial CXR's. - Continue to monitor SPO2 and VS. - Pt's spouse, Jaguar was updated on the patient's change in condition and the need and purpose of a chest tube in this given situation. - 05/03/22: Pt. with some post procedural pain/discomfort that is to be expected. Repeat CXR this AM demonstrates trace to mild Subcutaneous emphysema on the affected side of chest. Medicine appreciates the co-management of Gen Subramanian and Dr. Mak, and we will follow their lead on when to remove Chest tube. Will order CXR for AM. - 05/04/22: CXR this AM demonstrates unchanged results from yesterday. Pt. has stable and unlabored breathing at this time with a mild cough. Surgery DONATO at bedside also, plan is to possibly pull chest tube tomorrow. - 05/05/22: Chest tube to be removed today as chest x-ray shows no further pneumothorax remaining. Patient's breathing is at baseline. (2) Sepsis: Qualifiers: Sepsis type: sepsis due to unspecified organism Sepsis acute organ dysfunction status: with acute organ dysfunction Severe sepsis acute organ dysfunction type: acute respiratory failure Acute respiratory failure type: with hypoxia Severe sepsis shock status: without septic shock Qualified Code(s): A41.9 - Sepsis, unspecified organism; R65.20 - Severe sepsis without septic shock; J96.01 - Acute respiratory failure with hypoxia Code(s): A41.9 - Sepsis, unspecified organism Status: Resolved Assessment and Plan: HR>90, WBC> 12, lactic acid 4.7, and suspected aspiration pneumonia. Lactic acidosis presence is concerning for severe sepsis, however, it may also be elevated d/t hypoxia on presentation. qSOFA score 1, not high risk Fluids stopped a blood cultures x2, NGTD, final report with no growth. Procalcitonin 0.1. Repeat lactic acid was 1.8, Lactic acidosis resolved. Urine culture showed no growth, abx stopped. Continue antibiotics as sputum culture has gram positive cocci, final growth negative. Hypoxia and mildly elevated serum creatinine (unknown baseline) resolved and returned to normal today. No longer meeting sepsis criteria on 05/02/22. She is currently maintaining her oxygen saturations on room air even despite having an acute post-procedure pneumothorax. - 05/03/22 - Rocephin and Azithromycin for the read of the CXR this morning that demonstrates possible BLL infiltrates, although pt. is not appearing to be acutely ill. We will continue to monitor her overall respiratory status. Repeat labs in AM. Sputum, blood, urine and MRSA cultures are all negative. No longer meeting sepsis criteria. - 05/04/22 - CXR this AM lists PNA as a less likely possibility and favors more atelectasis. Will continue abx at this time and will have patient begin using IS. Repeat CXR in AM. - 05/05/22 - resolved (3) Hypoxia: Code(s): R09.02 - Hypoxemia Status: Resolved Assessment and Plan: - Oxygen weaned to room air. Continue O2, wean as tolerated. Add incentive spirometry. Probably from the nodule in the left upper lobe CTA of the chest 2.3cm nodule in the left upper lobe Biopsy ordered Consult oncology for further recommendation 05/02/22 COntinue incentive spirometry after Chest tube is placed. 05/02/22 Biopsy performed yesterday and pt. has a subsequent pneumothorax. - 05/03/22 - Resolved. Pt. is holding her own oxygen level at 92%. We will continue to monitor this. (4) Hyponatremia: Code(s): E87.1 - Hypo-osmolality
[2022-05-05] MEDS: SENNA/DOCUSATE SODIUM TABLET 1 TAB PO (20:25)
[2022-05-05] MEDS: LATANOPROST 0.005% OP SOLN 2.5 ML BTL 1 DROP EACH EYE (20:26)
[2022-05-05] MEDS: HYDROcodone/acetaminophen (*CRX) 5-325 MG TABLET 1 TAB PO (20:31)
[2022-05-06] VITALS (17 sets, daily range): BP systolic 94–151; BP diastolic 48–78; PULSE 67–79; RESP 16–20; TEMP 36.5–36.7; O2SAT 94–95
[2022-05-06] MEDS: ALBUTEROL SULFATE NEB 2.5 MG/3 ML INH 5 MG INHALATION ×2 (02:42→09:40)
[2022-05-06 05:42] LABS: Basophils Absolute Auto 0.1 K/mm3 (0.0-0.1); Basophils Percent Auto 0.8 % (0.2-1.2); Eosinophils Absolute Auto 0.4 K/mm3 (0-0.3); Eosinophils Percent Auto 5.8 % (0-4.4); Hematocrit 33.4 % (37.0-47.0); Hemoglobin 10.7 g/dL (12.0-15.0); Immature Granulocyte Absolute 0.12 K/mm3 (0.00-0.031); Immature Granulocyte Percent A 1.9 % (0-0.5); Lymphocytes Absolute Auto 2.03 K/mm3 (0.9-3.2); Lymphocytes Percent Auto 32.5 % (18.3-44.2); Mean Corpuscular Hemoglobin 29.2 pg (26-34); Mean Corpuscular Volume 91.3 fl (80-100); Monocytes Absolute Auto 0.7 K/mm3 (0.1-0.6); Monocytes Percent Auto 11.2 % (2.6-8.5); Neutrophils Percent Auto 47.8 % (45.5-73.1); Platelet Count Result 217 k/mm3 (150-375); Red Blood Count 3.66 M/mm3 (4.2-5.4); Red Cell Distribution Width 13.5 % (11.5-14.5); White Blood Count 6.3 K/mm3 (4.5-10.0)
[2022-05-06] MEDS: HEPARIN SODIUM 5,000 UNITS/ML VIAL 5000 UNITS SUB-Q ×3 (05:44→21:20)
[2022-05-06 05:56] LABS: Alanine Aminotransferase 11 U/L (6-35); Albumin Level 3.2 g/dL (3.5-5.1); Alkaline Phosphatase 73 U/L (38-126); Anion Gap 6 mmol/L (8-16); Aspartate Amino Transferase 16 U/L (14-36); Bilirubin,Total 0.3 mg/dL (0.2-1.3); Blood Urea Nitrogen 12 mg/dL (7-17); Calcium 9.3 mg/dL (8.4-10.2); Carbon Dioxide 24 mmol/L (22-30); Chloride 101 mmol/L (98-107); Estimated CRCL calculation 43 ml/min; Estimated Glomerular Filt Rate 53; Glucose 92 mg/dL (65-110); Magnesium 2.2 mg/dL (1.6-2.3); Potassium 4.1 mmol/L (3.4-5.0); Sodium 131 mmol/L (137-145)
[2022-05-06] MEDS: polyethylene glycoL 3350 17 GM POWD.PACK PO (08:20)
[2022-05-06] MEDS: LIDOCAINE 5% PATCH 1 PATCH TRANSDERM (08:20)
[2022-05-06] MEDS: BRIMONIDINE TARTRATE 0.2% OP SOLN 5 ML BTL 1 DROP LEFT EYE ×2 (08:21→21:21)
[2022-05-06] MEDS: FERROUS SULFATE 324 MG TABLET PO (08:21)
[2022-05-06] MEDS: PANTOPRAZOLE 40 MG TABLET PO (08:21)
[2022-05-06] MEDS: BRINZOLAMIDE 1% OPHTH SUSP 10 ML 1 DROP LEFT EYE ×2 (08:22→21:21)
[2022-05-06] MEDS: FLUTICASONE PROPIONATE 0.05% NA SPR 16 GM BTL (*BKC) 1 SPRAY NASAL (08:22)
--- NOTE | 2022-05-06 08:58 | PM.PNGS ---
Progress Note: A&P Assessment and Plan (1) Pneumothorax after biopsy: Code(s): J95.811 - Postprocedural pneumothorax Status: Acute Assessment and Plan: Chest tube removed yesterday. Chest x-ray this morning remains stable with no pneumothorax. Will sign off at this point. Please call with any surgical questions or concerns. (2) Lung nodule: Code(s): R91.1 - Solitary pulmonary nodule Status: Acute Assessment and Plan: Pathology is benign. Plan I have discussed the patient's case and plan of care with Dr. Mak. Subjective Subjective Date/Time Seen: 05/06/22 08:58 Patient reports: no new complaints, tolerating a regular diet and afebrile Interval history: Patient seen and examined. Denies any shortness of breath or chest pain at this time. No acute events overnight. Chest tube removed yesterday by Dr. Mak. Review of Systems Review of Systems: All systems reviewed & are unremarkable except as noted in HPI and below Exam Const: General: comfortable, no acute distress and awake Nutritional Appearance: obese Orientation/consciousness: oriented to person and oriented to place Chest: Chest palpation & inspection: no crepitus Other: Left chest gauze dressing dry and intact Resp: Effort & Inspection: normal respiratory effort Auscultation: wheezes expiratory wheezes and inspiratory wheezes Psych: Affect: normal affect Thought process: Normal thought process present Objective Data Vital Signs Vital Signs: Vital Signs - 24 hr 05/05/22 09:23 05/05/22 13:16 05/05/22 13:23 Temperature Pulse Rate 74 80 Respiratory Rate 22 H 22 H Blood Pressure Pulse Oximetry Oxygen Delivery Room Air 05/05/22 12:04 05/05/22 14:00 05/05/22 16:01 Temperature 97.5 F L Pulse Rate 84 81 78 Respiratory Rate 18 Blood Pressure 116/68 Pulse Oximetry 95 Oxygen Delivery 05/05/22 19:40 05/05/22 21:09 05/05/22 21:12 Temperature 98.1 F Pulse Rate 78 73 73 Respiratory Rate 18 20 Blood Pressure 124/68 Pulse Oximetry 93 93 Oxygen Delivery Room Air 05/05/22 21:20 05/05/22 20:00 05/05/22 20:00 Temperature Pulse Rate 75 75 80 Respiratory Rate 20 20 Blood Pressure Pulse Oximetry 93 Oxygen Delivery Room Air 05/06/22 02:42 05/06/22 02:53 05/06/22 00:00 Temperature Pulse Rate 67 69 75 Respiratory Rate 20 20 Blood Pressure Pulse Oximetry Oxygen Delivery 05/06/22 03:56 05/06/22 04:00 05/06/22 08:00 Temperature 98.0 F Pulse Rate 70 69 69 Respiratory Rate 20 Blood Pressure 94/48 L Pulse Oximetry 94 Oxygen Delivery Intake/Output Intake/Output: Intake & Output 05/03/22 05/04/22 05/05/22 05/06/22 23:59 23:59 23:59 23:59 Intake Total 1520 1820 1230 120 Output Total 25 Balance 1495 1820 1230 120 Meds/Results Medications: Active Medications Generic Name Dose Route Start Last Admin Trade Name Freq PRN Reason Stop Dose Admin Acetaminophen 1,000 mg 05/01/22 10:50 05/04/22 16:32 Acetaminophen 500 Mg Tablet PO 1,000 mg Q6H PRN Administration Pain Acetaminophen 500 mg 05/02/22 10:14 Acetaminophen 500 Mg Tablet PO Q6H PRN Mild Pain (1-3) or Fever Hydrocodone Bitart/Acetaminophen 1 tab 05/02/22 10:14 05/05/22 20:31 Hydrocodone/Acetaminophen (*Crx) 5-325 Mg Tablet PO 1 tab Q4H PRN Administration Pain Rated 4-6 Hydrocodone Bitart/Acetaminophen 1 tab 05/02/22 10:14 05/04/22 06:21 Hydrocodone/Acetaminophen (*Crx) 7.5-325 Mg Tablet PO 1 tab Q4H PRN Administration Pain Rated 7-10 Albuterol 5 mg 04/28/22 14:00 05/06/22 02:42 Albuterol Sulfate Neb 2.5 Mg/3 Ml Inh INHALATION 5 mg Q6HRT JONY Administration Albuterol 2.5 mg 05/02/22 12:00 Albuterol Sulfate Neb 2.5 Mg/3 Ml Inh INHALATION Q4HRT PRN Shortness Of Breath Brimonidine Tartrate 1 drop 04/28/22 21:00 05/06/22 08:21 Brimonidine Tartrate 0.2% Op So
[2022-05-06] MEDS: ALBUTEROL SULFATE NEB 2.5 MG/0.5 ML INH ×2 (09:10→15:00)
[2022-05-06] MEDS: SENNA/DOCUSATE SODIUM TABLET 1 TAB PO ×2 (11:50→21:21)
--- NOTE | 2022-05-06 12:48 | PM.IMPN ---
Progress Note: A&P Assessment and Plan (1) Pneumothorax after biopsy: Code(s): J95.811 - Postprocedural pneumothorax Status: Acute Assessment and Plan: - As noted per CXR this AM, there has been interval increase in size of Pneumothorax to 6.5 cm. Radiology recommending chest tube. - Physical exam correlates with Radiology findings. - Pt. with more labored breathing. - Consult Gen Subramanian for assist with Chest tube placement. - Continue to monitor respiratory status and check serial CXR's. - Continue to monitor SPO2 and VS. - Pt's spouse, Jaguar was updated on the patient's change in condition and the need and purpose of a chest tube in this given situation. - 05/03/22: Pt. with some post procedural pain/discomfort that is to be expected. Repeat CXR this AM demonstrates trace to mild Subcutaneous emphysema on the affected side of chest. Medicine appreciates the co-management of Gen Subramanian and Dr. Mak, and we will follow their lead on when to remove Chest tube. Will order CXR for AM. - 05/04/22: CXR this AM demonstrates unchanged results from yesterday. Pt. has stable and unlabored breathing at this time with a mild cough. Surgery DONATO at bedside also, plan is to possibly pull chest tube tomorrow. - 05/05/22: Chest tube to be removed today as chest x-ray shows no further pneumothorax remaining. Patient's breathing is at baseline. - 05/06/2022 have repeat chest x-ray without pneumothorax. Respiratory status stable the patient is on room air (2) Sepsis: Qualifiers: Acute respiratory failure type: with hypoxia Sepsis acute organ dysfunction status: with acute organ dysfunction Sepsis type: sepsis due to unspecified organism Severe sepsis acute organ dysfunction type: acute respiratory failure Severe sepsis shock status: without septic shock Qualified Code(s): A41.9 - Sepsis, unspecified organism; R65.20 - Severe sepsis without septic shock; J96.01 - Acute respiratory failure with hypoxia Code(s): A41.9 - Sepsis, unspecified organism Status: Resolved Assessment and Plan: HR>90, WBC> 12, lactic acid 4.7, and suspected aspiration pneumonia. Lactic acidosis presence is concerning for severe sepsis, however, it may also be elevated d/t hypoxia on presentation. qSOFA score 1, not high risk Fluids stopped a blood cultures x2, NGTD, final report with no growth. Procalcitonin 0.1. Repeat lactic acid was 1.8, Lactic acidosis resolved. Urine culture showed no growth, abx stopped. Continue antibiotics as sputum culture has gram positive cocci, final growth negative. Hypoxia and mildly elevated serum creatinine (unknown baseline) resolved and returned to normal today. No longer meeting sepsis criteria on 05/02/22. She is currently maintaining her oxygen saturations on room air even despite having an acute post-procedure pneumothorax. - 05/03/22 - Rocephin and Azithromycin for the read of the CXR this morning that demonstrates possible BLL infiltrates, although pt. is not appearing to be acutely ill. We will continue to monitor her overall respiratory status. Repeat labs in AM. Sputum, blood, urine and MRSA cultures are all negative. No longer meeting sepsis criteria. - 05/04/22 - CXR this AM lists PNA as a less likely possibility and favors more atelectasis. Will continue abx at this time and will have patient begin using IS. Repeat CXR in AM. - 05/05/22 - resolved (3) Hypoxia: Code(s): R09.02 - Hypoxemia Status: Resolved Assessment and Plan: - Oxygen weaned to room air. Continue O2, wean as tolerated. Add incentive spirometry. Probably from the nodule in the left upper lobe CTA of the chest 2.3cm nodule in the left upper lobe Biopsy ordered Consult oncology for further recommendation 05/02/22 COntinue incentive spirometry after Chest tube is placed. 05/02/22 Biopsy performed yesterday and pt. has a subsequent pneumothorax. - 05/03/22 - Resolved. Pt. is holding her own oxy
--- NOTE | 2022-05-06 14:07 | PCNWS ---
Weekly nutritional screen. Patient is tolerating current diet with adequate intake. No weight loss reported. No nutritional needs at this time. 50lbs intentional wt loss since Aug, by reducing/avoiding junk food. Tracking calories using the lose it zachary. Complaints about sore throat, but appetite is fair.
--- NOTE | 2022-05-06 14:31 | PCNSR ---
On 05/06/22, the student, Leon Whitfield, provided care and completed [employer] documentation on this patient. I have reviewed the student's documentation and agree with the findings.
--- NOTE | 2022-05-06 15:21 | PC.NURSE ---
On 05/06/22, the student, [Adalgisa Jose], provided care and completed [employer] documentation on this patient. I have reviewed the student's documentation and agree with the findings.
[2022-05-06] MEDS: guaiFENesin 12 HR 600 MG TABCR PO (21:20)
[2022-05-06] MEDS: LATANOPROST 0.005% OP SOLN 2.5 ML BTL 1 DROP EACH EYE (21:21)
[2022-05-07] VITALS: PULSE 76
[2022-05-07 04:00] VITALS: PULSE 70
[2022-05-07 06:00] VITALS: BP 151/79; PULSE 73; RESP 16; TEMP 36.4; O2SAT 93
[2022-05-07] MEDS: HEPARIN SODIUM 5,000 UNITS/ML VIAL 5000 UNITS SUB-Q ×3 (06:21→20:08)
[2022-05-07] MEDS: HYDROcodone/acetaminophen (*CRX) 7.5-325 MG TABLET 1 TAB PO (06:23)
[2022-05-07] MEDS: PANTOPRAZOLE 40 MG TABLET PO (08:45)
[2022-05-07] MEDS: guaiFENesin 12 HR 600 MG TABCR PO (08:45)
[2022-05-07] MEDS: polyethylene glycoL 3350 17 GM POWD.PACK PO (08:46)
[2022-05-07] MEDS: FERROUS SULFATE 324 MG TABLET PO (08:46)
[2022-05-07] MEDS: FLUTICASONE PROPIONATE 0.05% NA SPR 16 GM BTL (*BKC) 1 SPRAY NASAL (08:46)
[2022-05-07] MEDS: LIDOCAINE 5% PATCH 1 PATCH TRANSDERM (08:46)
[2022-05-07] MEDS: BRIMONIDINE TARTRATE 0.2% OP SOLN 5 ML BTL 1 DROP LEFT EYE ×2 (08:47→20:08)
[2022-05-07] MEDS: BRINZOLAMIDE 1% OPHTH SUSP 10 ML 1 DROP LEFT EYE ×2 (08:47→20:07)
[2022-05-07] MEDS: SENNA/DOCUSATE SODIUM TABLET 1 TAB PO ×2 (08:52→20:08)
[2022-05-07] MEDS: ACETAMINOPHEN 500 MG TABLET PO (10:24)
--- NOTE | 2022-05-07 13:11 | PM.IMPN ---
Progress Note: A&P Assessment and Plan (1) Pneumothorax after biopsy: Code(s): J95.811 - Postprocedural pneumothorax Status: Resolved Assessment and Plan: - As noted per CXR this AM, there has been interval increase in size of Pneumothorax to 6.5 cm. Radiology recommending chest tube. - Physical exam correlates with Radiology findings. - Pt. with more labored breathing. - Consult Gen Subramanian for assist with Chest tube placement. - Continue to monitor respiratory status and check serial CXR's. - Continue to monitor SPO2 and VS. - Pt's spouse, Jaguar was updated on the patient's change in condition and the need and purpose of a chest tube in this given situation. - 05/03/22: Pt. with some post procedural pain/discomfort that is to be expected. Repeat CXR this AM demonstrates trace to mild Subcutaneous emphysema on the affected side of chest. Medicine appreciates the co-management of Gen Subramanian and Dr. Mak, and we will follow their lead on when to remove Chest tube. Will order CXR for AM. - 05/04/22: CXR this AM demonstrates unchanged results from yesterday. Pt. has stable and unlabored breathing at this time with a mild cough. Surgery DONATO at bedside also, plan is to possibly pull chest tube tomorrow. - 05/05/22: Chest tube to be removed today as chest x-ray shows no further pneumothorax remaining. Patient's breathing is at baseline. - 05/06/2022 have repeat chest x-ray without pneumothorax. Respiratory status stable the patient is on room air - 05/07/22 No respiratory complaints. Patient is on room air. (2) Sepsis: Qualifiers: Sepsis type: sepsis due to unspecified organism Sepsis acute organ dysfunction status: with acute organ dysfunction Severe sepsis acute organ dysfunction type: acute respiratory failure Acute respiratory failure type: with hypoxia Severe sepsis shock status: without septic shock Qualified Code(s): A41.9 - Sepsis, unspecified organism; R65.20 - Severe sepsis without septic shock; J96.01 - Acute respiratory failure with hypoxia Code(s): A41.9 - Sepsis, unspecified organism Status: Resolved Assessment and Plan: HR>90, WBC> 12, lactic acid 4.7, and suspected aspiration pneumonia. Lactic acidosis presence is concerning for severe sepsis, however, it may also be elevated d/t hypoxia on presentation. qSOFA score 1, not high risk Fluids stopped a blood cultures x2, NGTD, final report with no growth. Procalcitonin 0.1. Repeat lactic acid was 1.8, Lactic acidosis resolved. Urine culture showed no growth, abx stopped. Continue antibiotics as sputum culture has gram positive cocci, final growth negative. Hypoxia and mildly elevated serum creatinine (unknown baseline) resolved and returned to normal today. No longer meeting sepsis criteria on 05/02/22. She is currently maintaining her oxygen saturations on room air even despite having an acute post-procedure pneumothorax. - 05/03/22 - Rocephin and Azithromycin for the read of the CXR this morning that demonstrates possible BLL infiltrates, although pt. is not appearing to be acutely ill. We will continue to monitor her overall respiratory status. Repeat labs in AM. Sputum, blood, urine and MRSA cultures are all negative. No longer meeting sepsis criteria. - 05/04/22 - CXR this AM lists PNA as a less likely possibility and favors more atelectasis. Will continue abx at this time and will have patient begin using IS. Repeat CXR in AM. - 05/05/22 - resolved (3) Hypoxia: Code(s): R09.02 - Hypoxemia Status: Resolved Assessment and Plan: - Oxygen weaned to room air. Continue O2, wean as tolerated. Add incentive spirometry. Probably from the nodule in the left upper lobe CTA of the chest 2.3cm nodule in the left upper lobe Biopsy ordered Consult oncology for further recommendation 05/02/22 COntinue incentive spirometry after Chest tube is placed. 05/02/22 Biopsy performed yesterday and pt. has a subsequent
[2022-05-07 14:00] VITALS: BP 140/74; PULSE 70; RESP 16; TEMP 36.4; O2SAT 95
[2022-05-07] MEDS: LATANOPROST 0.005% OP SOLN 2.5 ML BTL 1 DROP EACH EYE (20:08)
[2022-05-07 22:38] VITALS: BP 104/42; PULSE 76; RESP 16; TEMP 36.2; O2SAT 94
[2022-05-07] MEDS: MELATONIN 5 MG TABLET PO (23:57)
[2022-05-08] MEDS: diphenhydrAMINE HCl CAP 25 MG CAPSULE PO (02:43)
[2022-05-08] MEDS: HEPARIN SODIUM 5,000 UNITS/ML VIAL 5000 UNITS SUB-Q ×3 (05:13→21:34)
[2022-05-08 06:00] VITALS: BP 129/79; PULSE 68; RESP 16; TEMP 36.8; O2SAT 94
[2022-05-08 06:13] LABS: Hematocrit 35.2 % (37.0-47.0); Hemoglobin 11.1 g/dL (12.0-15.0); Mean Corpuscular HGB Conc 31.5 g/dl (32-36); Mean Corpuscular Hemoglobin 29.1 pg (26-34); Mean Corpuscular Volume 92.4 fl (80-100); Mean Platelet Volume 8.8 fl (7.4-10.4); Platelet Count Result 218 k/mm3 (150-375); Red Blood Count 3.81 M/mm3 (4.2-5.4); Red Cell Distribution Width 13.5 % (11.5-14.5); White Blood Count 6.5 K/mm3 (4.5-10.0)
[2022-05-08 06:20] LABS: Anion Gap 10 mmol/L (8-16); Blood Urea Nitrogen 16 mg/dL (7-17); Carbon Dioxide 24 mmol/L (22-30); Chloride 98 mmol/L (98-107); Estimated CRCL calculation 39 ml/min; Estimated Glomerular Filt Rate 48; Glucose 91 mg/dL (65-110); Potassium 4.2 mmol/L (3.4-5.0); Sodium 132 mmol/L (137-145)
[2022-05-08] MEDS: FERROUS SULFATE 324 MG TABLET PO (08:00)
[2022-05-08] MEDS: BRIMONIDINE TARTRATE 0.2% OP SOLN 5 ML BTL 1 DROP LEFT EYE ×2 (08:00→20:27)
[2022-05-08] MEDS: LIDOCAINE 5% PATCH 1 PATCH TRANSDERM (08:02)
[2022-05-08] MEDS: FLUTICASONE PROPIONATE 0.05% NA SPR 16 GM BTL (*BKC) 1 SPRAY NASAL (08:02)
[2022-05-08] MEDS: PANTOPRAZOLE 40 MG TABLET PO (08:03)
[2022-05-08] MEDS: polyethylene glycoL 3350 17 GM POWD.PACK PO (08:03)
[2022-05-08] MEDS: BRINZOLAMIDE 1% OPHTH SUSP 10 ML 1 DROP LEFT EYE ×2 (11:12→20:26)
[2022-05-08 14:00] VITALS: BP 126/70; PULSE 64; RESP 16; TEMP 36.8; O2SAT 94
[2022-05-08] MEDS: LATANOPROST 0.005% OP SOLN 2.5 ML BTL 1 DROP EACH EYE (20:27)
[2022-05-08] MEDS: SENNA/DOCUSATE SODIUM TABLET 1 TAB PO (20:27)
[2022-05-08] MEDS: guaiFENesin 12 HR 600 MG TABCR PO (20:27)
[2022-05-08] MEDS: MELATONIN 5 MG TABLET PO (20:28)
[2022-05-08 21:30] VITALS: BP 103/50; PULSE 75; RESP 16; TEMP 36.5; O2SAT 94
[2022-05-09] MEDS: HEPARIN SODIUM 5,000 UNITS/ML VIAL 5000 UNITS SUB-Q ×3 (05:27→21:35)
[2022-05-09 05:51] LABS: Basophils Absolute Auto 0.1 K/mm3 (0.0-0.1); Basophils Percent Auto 0.9 % (0.2-1.2); Eosinophils Absolute Auto 0.3 K/mm3 (0-0.3); Eosinophils Percent Auto 4.6 % (0-4.4); Hemoglobin 11.1 g/dL (12.0-15.0); Immature Granulocyte Absolute 0.08 K/mm3 (0.00-0.031); Immature Granulocyte Percent A 1.2 % (0-0.5); Lymphocytes Absolute Auto 1.63 K/mm3 (0.9-3.2); Lymphocytes Percent Auto 24.7 % (18.3-44.2); Mean Corpuscular HGB Conc 31.7 g/dl (32-36); Mean Corpuscular Hemoglobin 29.4 pg (26-34); Mean Corpuscular Volume 92.8 fl (80-100); Monocytes Absolute Auto 0.6 K/mm3 (0.1-0.6); Monocytes Percent Auto 9.3 % (2.6-8.5); Neutrophils Absolute Auto 3.9 K/mm3 (1.3-6.7); Neutrophils Percent Auto 59.3 % (45.5-73.1); Platelet Count Result 211 k/mm3 (150-375); Red Blood Count 3.77 M/mm3 (4.2-5.4); Red Cell Distribution Width 13.8 % (11.5-14.5); White Blood Count 6.6 K/mm3 (4.5-10.0)
[2022-05-09 06:00] VITALS: BP 106/47; PULSE 67; RESP 16; TEMP 36.9; O2SAT 93
[2022-05-09 06:06] LABS: Alanine Aminotransferase 11 U/L (6-35); Albumin Level 3.4 g/dL (3.5-5.1); Alkaline Phosphatase 67 U/L (38-126); Anion Gap 8 mmol/L (8-16); Aspartate Amino Transferase 20 U/L (14-36); Bilirubin,Total 0.3 mg/dL (0.2-1.3); Blood Urea Nitrogen 14 mg/dL (7-17); Calcium 8.9 mg/dL (8.4-10.2); Carbon Dioxide 25 mmol/L (22-30); Chloride 97 mmol/L (98-107); Estimated CRCL calculation 36 ml/min; Estimated Glomerular Filt Rate 43; Glucose 89 mg/dL (65-110); Magnesium 2.1 mg/dL (1.6-2.3); Potassium 4.1 mmol/L (3.4-5.0); Sodium 130 mmol/L (137-145)
[2022-05-09 08:00] VITALS: O2SAT 93
[2022-05-09] MEDS: FERROUS SULFATE 324 MG TABLET PO (08:50)
[2022-05-09] MEDS: FLUTICASONE PROPIONATE 0.05% NA SPR 16 GM BTL (*BKC) 1 SPRAY NASAL (08:51)
[2022-05-09] MEDS: BRIMONIDINE TARTRATE 0.2% OP SOLN 5 ML BTL 1 DROP LEFT EYE ×2 (08:52→21:35)
[2022-05-09] MEDS: guaiFENesin 12 HR 600 MG TABCR PO ×2 (08:53→21:36)
[2022-05-09] MEDS: PANTOPRAZOLE 40 MG TABLET PO (08:53)
[2022-05-09] MEDS: BRINZOLAMIDE 1% OPHTH SUSP 10 ML 1 DROP LEFT EYE ×2 (08:53→21:38)
[2022-05-09] MEDS: LIDOCAINE 5% PATCH 1 PATCH TRANSDERM (08:59)
[2022-05-09] MEDS: FUROSEMIDE INJ 40 MG/4 ML VIAL IV PUSH (08:59)
--- NOTE | 2022-05-09 12:00 | P.PNIM_ITS ---
Progress Note: A&P Assessment and Plan (1) Pneumothorax after biopsy: Code(s): J95.811 - Postprocedural pneumothorax Status: Resolved Assessment and Plan: - Resolved - CXR post biopsy showed interval increase in size of Pneumothorax to 6.5 cm. Radiology recommending chest tube. - Consult Gen Sgy for assist with Chest tube - Continue to monitor SPO2 and VS. - Chest tube inserted on 05/02/22, removed 05/05/22 - Supplemental Oxygen, currently on room air - Respiratory status stable, Pneumothorax resolved - Continue to trend SPO2 (2) Sepsis: Qualifiers: Acute respiratory failure type: with hypoxia Sepsis acute organ dysfunction status: with acute organ dysfunction Sepsis type: sepsis due to unspecified organism Severe sepsis acute organ dysfunction type: acute respiratory failure Severe sepsis shock status: without septic shock Qualified Code(s): A41.9 - Sepsis, unspecified organism; R65.20 - Severe sepsis without septic shock; J96.01 - Acute respiratory failure with hypoxia Code(s): A41.9 - Sepsis, unspecified organism Status: Resolved Assessment and Plan: * Resolved * HR>90, WBC> 12, lactic acid 4.7, and suspected aspiration pneumonia. Lactic acidosis presence is concerning for severe sepsis, however, it may also be elevated d/t hypoxia on presentation. * qSOFA score 1, not high risk * Fluids stopped * blood cultures x2, NGTD, final report with no growth. * Procalcitonin 0.1. * Repeat lactic acid was 1.8, Lactic acidosis resolved. * Urine culture showed no growth, abx stopped. * Continue antibiotics as sputum culture has gram positive cocci, final growth negative. * Hypoxia and mildly elevated serum creatinine (unknown baseline) resolved * No longer meeting sepsis criteria on 05/02/22. She is currently maintaining her oxygen saturations on room air even despite having an acute post-procedure pneumothorax. (3) Hypoxia: Code(s): R09.02 - Hypoxemia Status: Resolved Assessment and Plan: * Resolved * Oxygen weaned to room air. * Continue O2, wean as tolerated. * Add incentive spirometry. * Probably from the nodule in the left upper lobe * CTA of the chest 2.3cm nodule in the left upper lobe * Biopsy ordered * Consult oncology for further recommendation (4) Hyponatremia: Code(s): E87.1 - Hypo-osmolality and hyponatremia Status: Resolved Assessment and Plan: * Resolved * Sodium 128 on admission, currently 130 * Give one dose of IV lasix * Noted Lethargy AOx3. Likely 2/2 hypovolemia as creatinine is mildly elevated. * Continue to trend labs * Urine studies ordered ur sodium 98, Ur urea 207, Ur creatinine 24.6 * Stable (5) Generalized weakness: Code(s): R53.1 - Weakness Status: Acute Assessment and Plan: * Continue on 05/02/22. * PT/OT eval * Fall precautions (6) Dysphagia: Qualifiers: Dysphagia type: unspecified Qualified Code(s): R13.10 - Dysphagia, unspecified Code(s): R13.10 - Dysphagia, unspecified Status: Chronic Assessment and Plan: * H/O dysphagia following stroke. She reports eating bite-sized diet with thin liquids. +moist cough and subjective report of coughing with eating/drinking. * Consult speech therapy. * Advance diet to recommendations from speech * Soft and bite sized with thin liquids * Not really convenience that this is aspiration related * HOB>30. Aspiration precautions.
--- NOTE | 2022-05-09 12:00 | PM.IMPN ---
Progress Note: A&P Assessment and Plan (1) Pneumothorax after biopsy: Code(s): J95.811 - Postprocedural pneumothorax Status: Resolved Assessment and Plan: - Resolved - CXR post biopsy showed interval increase in size of Pneumothorax to 6.5 cm. Radiology recommending chest tube. - Consult Gen Sgy for assist with Chest tube - Continue to monitor SPO2 and VS. - Chest tube inserted on 05/02/22, removed 05/05/22 - Supplemental Oxygen, currently on room air - Respiratory status stable, Pneumothorax resolved - Continue to trend SPO2 (2) Sepsis: Qualifiers: Acute respiratory failure type: with hypoxia Sepsis acute organ dysfunction status: with acute organ dysfunction Sepsis type: sepsis due to unspecified organism Severe sepsis acute organ dysfunction type: acute respiratory failure Severe sepsis shock status: without septic shock Qualified Code(s): A41.9 - Sepsis, unspecified organism; R65.20 - Severe sepsis without septic shock; J96.01 - Acute respiratory failure with hypoxia Code(s): A41.9 - Sepsis, unspecified organism Status: Resolved Assessment and Plan: Resolved HR>90, WBC> 12, lactic acid 4.7, and suspected aspiration pneumonia. Lactic acidosis presence is concerning for severe sepsis, however, it may also be elevated d/t hypoxia on presentation. qSOFA score 1, not high risk Fluids stopped blood cultures x2, NGTD, final report with no growth. Procalcitonin 0.1. Repeat lactic acid was 1.8, Lactic acidosis resolved. Urine culture showed no growth, abx stopped. Continue antibiotics as sputum culture has gram positive cocci, final growth negative. Hypoxia and mildly elevated serum creatinine (unknown baseline) resolved No longer meeting sepsis criteria on 05/02/22. She is currently maintaining her oxygen saturations on room air even despite having an acute post-procedure pneumothorax. (3) Hypoxia: Code(s): R09.02 - Hypoxemia Status: Resolved Assessment and Plan: Resolved Oxygen weaned to room air. Continue O2, wean as tolerated. Add incentive spirometry. Probably from the nodule in the left upper lobe CTA of the chest 2.3cm nodule in the left upper lobe Biopsy ordered Consult oncology for further recommendation (4) Hyponatremia: Code(s): E87.1 - Hypo-osmolality and hyponatremia Status: Resolved Assessment and Plan: Resolved Sodium 128 on admission, currently 130 Give one dose of IV lasix Noted Lethargy AOx3. Likely 2/2 hypovolemia as creatinine is mildly elevated. Continue to trend labs Urine studies ordered ur sodium 98, Ur urea 207, Ur creatinine 24.6 Stable (5) Generalized weakness: Code(s): R53.1 - Weakness Status: Acute Assessment and Plan: Continue on 05/02/22. PT/OT eval Fall precautions (6) Dysphagia: Qualifiers: Dysphagia type: unspecified Qualified Code(s): R13.10 - Dysphagia, unspecified Code(s): R13.10 - Dysphagia, unspecified Status: Chronic Assessment and Plan: H/O dysphagia following stroke. She reports eating bite-sized diet with thin liquids. +moist cough and subjective report of coughing with eating/drinking. Consult speech therapy. Advance diet to recommendations from speech Soft and bite sized with thin liquids Not really convenience that this is aspiration related HOB>30. Aspiration precautions. (7) Frequent urinary tract infections: Code(s): N39.0 - Urinary tract infection, site not specified Status: Resolved Assessment and Plan: UA does appear to be infectious Denies any further complaints of urinary dysfunction Urine culture shows no growth Abx currently covering while patient has chest tube Antibiotics discontinued today. 05/05/2022 (8) Anemia: Qualifiers: Anemia type: unspecified type Qualified Code(s):
[2022-05-09 14:16] VITALS: BP 109/53; PULSE 72; RESP 18; TEMP 36.5; O2SAT 94
[2022-05-09 16:26] VITALS: PULSE 72; RESP 20
[2022-05-09] MEDS: ALBUTEROL SULFATE NEB 2.5 MG/3 ML INH INHALATION (16:28)
[2022-05-09 16:35] VITALS: PULSE 76; RESP 20
[2022-05-09] MEDS: TRIAMCINOLONE ACET 0.1% CREAM 15 GM TUBE 1 APPLIC TOPICAL (21:35)
[2022-05-09] MEDS: LATANOPROST 0.005% OP SOLN 2.5 ML BTL 1 DROP EACH EYE (21:35)
[2022-05-09 21:54] VITALS: BP 117/49; PULSE 77; RESP 16; TEMP 36.9; O2SAT 94
[2022-05-10] MEDS: HEPARIN SODIUM 5,000 UNITS/ML VIAL 5000 UNITS SUB-Q ×3 (05:32→21:18)
[2022-05-10 06:00] VITALS: BP 122/62; PULSE 69; RESP 20; TEMP 37.1; O2SAT 92
[2022-05-10] MEDS: PANTOPRAZOLE 40 MG TABLET PO (10:11)
[2022-05-10] MEDS: FERROUS SULFATE 324 MG TABLET PO (10:11)
[2022-05-10] MEDS: SENNA/DOCUSATE SODIUM TABLET 1 TAB PO ×2 (10:11→21:19)
[2022-05-10] MEDS: guaiFENesin 12 HR 600 MG TABCR PO ×2 (10:11→21:19)
[2022-05-10] MEDS: BRIMONIDINE TARTRATE 0.2% OP SOLN 5 ML BTL 1 DROP LEFT EYE ×2 (10:12→21:20)
[2022-05-10] MEDS: BRINZOLAMIDE 1% OPHTH SUSP 10 ML 1 DROP LEFT EYE ×2 (10:12→21:21)
[2022-05-10] MEDS: FLUTICASONE PROPIONATE 0.05% NA SPR 16 GM BTL (*BKC) 1 SPRAY NASAL (10:13)
[2022-05-10] MEDS: LIDOCAINE 5% PATCH 1 PATCH TRANSDERM (10:13)
[2022-05-10] MEDS: polyethylene glycoL 3350 17 GM POWD.PACK PO (10:13)
[2022-05-10] MEDS: TRIAMCINOLONE ACET 0.1% CREAM 15 GM TUBE 1 APPLIC TOPICAL ×2 (10:14→21:19)
[2022-05-10] MEDS: ACETAMINOPHEN 500 MG TABLET PO (13:29)
[2022-05-10 13:54] VITALS: BP 114/55; PULSE 77; RESP 16; TEMP 36.6; O2SAT 93
[2022-05-10 14:30] VITALS: PULSE 73; RESP 18; O2SAT 93
[2022-05-10] MEDS: ALBUTEROL SULFATE NEB 2.5 MG/3 ML INH INHALATION (14:36)
[2022-05-10 14:40] VITALS: PULSE 78; RESP 18
[2022-05-10] MEDS: ACETAMINOPHEN 500 MG TABLET 1000 MG PO (21:19)
[2022-05-10] MEDS: MELATONIN 5 MG TABLET PO (21:19)
[2022-05-10] MEDS: LATANOPROST 0.005% OP SOLN 2.5 ML BTL 1 DROP EACH EYE (21:20)
[2022-05-10 22:30] VITALS: BP 119/51; PULSE 72; RESP 16; TEMP 36.7; O2SAT 94
[2022-05-11 06:00] VITALS: BP 107/58; PULSE 65; RESP 18; TEMP 36.4; O2SAT 95
[2022-05-11] MEDS: HEPARIN SODIUM 5,000 UNITS/ML VIAL 5000 UNITS SUB-Q ×2 (06:11→14:02)
[2022-05-11] MEDS: guaiFENesin 12 HR 600 MG TABCR PO (10:07)
[2022-05-11] MEDS: FERROUS SULFATE 324 MG TABLET PO (10:07)
[2022-05-11] MEDS: BRIMONIDINE TARTRATE 0.2% OP SOLN 5 ML BTL 1 DROP LEFT EYE (10:07)
[2022-05-11] MEDS: PANTOPRAZOLE 40 MG TABLET PO (10:07)
[2022-05-11] MEDS: BRINZOLAMIDE 1% OPHTH SUSP 10 ML 1 DROP LEFT EYE (10:08)
[2022-05-11] MEDS: LIDOCAINE 5% PATCH 1 PATCH TRANSDERM (10:08)
[2022-05-11] MEDS: polyethylene glycoL 3350 17 GM POWD.PACK PO (10:08)
[2022-05-11] MEDS: TRIAMCINOLONE ACET 0.1% CREAM 15 GM TUBE 1 APPLIC TOPICAL (10:09)
[2022-05-11] MEDS: FLUTICASONE PROPIONATE 0.05% NA SPR 16 GM BTL (*BKC) 1 SPRAY NASAL (10:09)
--- NOTE | 2022-05-11 13:17 | P.DS_ITS ---
DS: Admitting Diagnosis Discharge Date 05/11/22 1427 Admitting Diagnosis Sepsis pneumonia, possible aspiration pneumonia Hypoxia Hyponatremia Generalized weakness H/o dysphagia DS: Discharge Diagnosis Discharge Diagnosis (1) Sepsis: Qualifiers: Sepsis type: sepsis due to unspecified organism Sepsis acute organ dys function status: with acute organ dysfunction Severe sepsis acute organ dysfunction type: acute respiratory failure Acute respiratory failure type: with hypoxia Severe sepsis shock status: without septic shock Qualified Code(s): A41.9 - Sepsis, unspecified organism; R65.20 - Severe sepsis without septic shock; J96.01 - Acute respiratory failure with hypoxia Code(s): A41.9 - Sepsis, unspecified organism Status: Acute Assessment and Plan: Patient met criteria for sepsis: HR>90, WBC> 12,, lactic acid 4.7, and suspected aspiration pneumonia. qSOFA 1, unknown etiology, aspiration ruled out. * blood cultures x2 no growth. * Procalcitonin 0.1. * Repeat lactic acid was 1.8, after fluid resuscitation. * Urine culture showed no growth * sputum culture has gram positive cocci, final growth negative. * Treated with Unasyn 3 grams Q6 hours 04/28-05/01/22, then Rocephin 1 gram Q24 hours and Azithromycin 500 mg IV Q24 hours 05/03-05/05 (2) Pneumothorax after biopsy: Code(s): J95.811 - Postprocedural pneumothorax Status: Acute Assessment and Plan: Noted on CXR post biopsy 05/01; repeat CXR 05/02 showed interval increase in size of left Pneumothorax to 6.5 cm. Radiology recommending chest tube. * General surgery consulted and chest tube placed 05/02 and placed to continuous suction. * Chest x-ray 05/05 showed no discernible pneumothorax. chest tube removed 05/05/22 and repeat imaging without recurrent pneumothorax. * Stable spO2 on room air. (3) Hypoxia: Code(s): R09.02 - Hypoxemia Status: Acute Assessment and Plan: Requiring 4L O2 per nasal cannula on admission with no h/o O2 use at home. Thought to be secondary to pneumonia, however, this was ruled out. Unclear etiology. * CTA chest showed 2.3cm nodule in the left upper lobe * Biopsy obtained and showed benign lung tissue and cartilage * Weaned to room air prior with spO2>90% by 04/30/22 (4) Lung nodule: Code(s): R91.1 - Solitary pulmonary nodule Status: Acute Assessment and Plan: Nodule noted on the CTA chest * Biopsy done 05/01/22 - Pathology negative and showed to be benign * Chest xray suggests and biopsy consistent with either pulmonary hamartoma or chondroma (5) Hyponatremia: Code(s): E87.1 - Hypo-osmolality and hyponatremia Status: Acute Assessment and Plan: Sodium 128 on admission, Likely 2/2 hypovolemia as creatinine is mildly elevated. * Treated with IV fluids * Urine studies ordered ur sodium 98, Ur urea 207, Ur creatinine 24.6 * Sodium 131 at discharge, asymptomatic. (6) Generalized weakness: Code(s): R53.1 - Weakness Status: Acute Assessment and Plan: Secondary to deconditioning and acute illness * PT/OT consulted. Insurance authorization for SNF denied. Waited for family appeal decision. * Fall precautions (7) Dysphagia: Qualifiers: Dysphagia type: unspecified Qualified Code(s): R13.10 - Dysphagia, unspecified Code(s): R13.10 - Dysphagia, unspecified Status: Chronic Assessment and Plan: H/O dysphagia following stroke. On ad
--- NOTE | 2022-05-11 13:17 | PM.DS ---
DS: Admitting Diagnosis Discharge Date 05/11/22 1427 Admitting Diagnosis Sepsis pneumonia, possible aspiration pneumonia Hypoxia Hyponatremia Generalized weakness H/o dysphagia DS: Discharge Diagnosis Discharge Diagnosis (1) Sepsis: Qualifiers: Sepsis type: sepsis due to unspecified organism Sepsis acute organ dysfunction status: with acute organ dysfunction Severe sepsis acute organ dysfunction type: acute respiratory failure Acute respiratory failure type: with hypoxia Severe sepsis shock status: without septic shock Qualified Code(s): A41.9 - Sepsis, unspecified organism; R65.20 - Severe sepsis without septic shock; J96.01 - Acute respiratory failure with hypoxia Code(s): A41.9 - Sepsis, unspecified organism Status: Acute Assessment and Plan: Patient met criteria for sepsis: HR>90, WBC> 12,, lactic acid 4.7, and suspected aspiration pneumonia. qSOFA 1, unknown etiology, aspiration ruled out. blood cultures x2 no growth. Procalcitonin 0.1. Repeat lactic acid was 1.8, after fluid resuscitation. Urine culture showed no growth sputum culture has gram positive cocci, final growth negative. Treated with Unasyn 3 grams Q6 hours 04/28-05/01/22, then Rocephin 1 gram Q24 hours and Azithromycin 500 mg IV Q24 hours 05/03-05/05 (2) Pneumothorax after biopsy: Code(s): J95.811 - Postprocedural pneumothorax Status: Acute Assessment and Plan: Noted on CXR post biopsy 05/01; repeat CXR 05/02 showed interval increase in size of left Pneumothorax to 6.5 cm. Radiology recommending chest tube. General surgery consulted and chest tube placed 05/02 and placed to continuous suction. Chest x-ray 05/05 showed no discernible pneumothorax. chest tube removed 05/05/22 and repeat imaging without recurrent pneumothorax. Stable spO2 on room air. (3) Hypoxia: Code(s): R09.02 - Hypoxemia Status: Acute Assessment and Plan: Requiring 4L O2 per nasal cannula on admission with no h/o O2 use at home. Thought to be secondary to pneumonia, however, this was ruled out. Unclear etiology. CTA chest showed 2.3cm nodule in the left upper lobe Biopsy obtained and showed benign lung tissue and cartilage Weaned to room air prior with spO2>90% by 04/30/22 (4) Lung nodule: Code(s): R91.1 - Solitary pulmonary nodule Status: Acute Assessment and Plan: Nodule noted on the CTA chest Biopsy done 05/01/22 - Pathology negative and showed to be benign Chest xray suggests and biopsy consistent with either pulmonary hamartoma or chondroma (5) Hyponatremia: Code(s): E87.1 - Hypo-osmolality and hyponatremia Status: Acute Assessment and Plan: Sodium 128 on admission, Likely 2/2 hypovolemia as creatinine is mildly elevated. Treated with IV fluids Urine studies ordered ur sodium 98, Ur urea 207, Ur creatinine 24.6 Sodium 131 at discharge, asymptomatic. (6) Generalized weakness: Code(s): R53.1 - Weakness Status: Acute Assessment and Plan: Secondary to deconditioning and acute illness PT/OT consulted. Insurance authorization for SNF denied. Waited for family appeal decision. Fall precautions (7) Dysphagia: Qualifiers: Dysphagia type: unspecified Qualified Code(s): R13.10 - Dysphagia, unspecified Code(s): R13.10 - Dysphagia, unspecified Status: Chronic Assessment and Plan: H/O dysphagia following stroke. On admission, +moist cough and subjective report of coughing with eating/drinking. Consulted speech therapy. Modified Barium swallow study Trace laryngeal penetration without aspiration Soft and bite sized with thin liquids recommended. Patient tolerated. Aspiration precautions. (8) Frequent urinary tract infections: Code(s): N39.0 - Urinary tract infection, site not specified Status: Chronic Assessment and Plan: Unclear acute UTI v
[2022-05-11] MEDS: ALBUTEROL SULFATE NEB 2.5 MG/3 ML INH INHALATION ×2 (13:30→19:14)
[2022-05-11 13:32] VITALS: PULSE 78; RESP 20
[2022-05-11 13:44] VITALS: PULSE 78; RESP 20
[2022-05-11 14:00] VITALS: BP 120/54; PULSE 74; RESP 16; TEMP 36.6; O2SAT 99
[2022-05-11 14:56] LABS: EDCOVIDSCREEN Negative (Negative)
[2022-05-11 19:16] VITALS: PULSE 72; RESP 18; O2SAT 94
[2022-05-11 20:32] VITALS: BP 100/53; PULSE 79; RESP 16; TEMP 36.5; O2SAT 95
== END 2022-05-11 21:34 | DRG 872 ==
LOC: ANHED 09:48 → ANH2MED 10:43
PROVIDERS: Nurse Practitioner; Nurse Practitioner Adult Health; Admitting Provider Family Medicine; Emergency Provider Emergency Medicine; PCP Family Medicine; Visit Provider Nurse Practitioner Family
DX: A41.9 Sepsis, unspecified organism (principal); E87.1 Hypo-osmolality and hyponatremia; N39.0 Urinary tract infection, site not specified; J95.811 Postprocedural pneumothorax; Z68.41 Body mass index [BMI] 40.0-44.9, adult; R65.20 Severe sepsis without septic shock; E66.9 Obesity, unspecified; R09.02 Hypoxemia; T81.82XA Emphysema (subcutaneous) resulting from a procedure, initial encounter; Y84.8 Other medical procedures as the cause of abnormal reaction of the patient, or of later complication, without mention of misadventure at the time of the procedure; R91.1 Solitary pulmonary nodule; R53.1 Weakness; I69.391 Dysphagia following cerebral infarction; R13.10 Dysphagia, unspecified; I10 Essential (primary) hypertension; E78.5 Hyperlipidemia, unspecified; R41.841 Cognitive communication deficit; D50.9 Iron deficiency anemia, unspecified; Z20.822 Contact with and (suspected) exposure to COVID-19; Z79.82 Long term (current) use of aspirin; Z79.899 Other long term (current) drug therapy; Z85.3 Personal history of malignant neoplasm of breast; Z87.440 Personal history of urinary (tract) infections
CPT/HCPCS: 32408; 36415; 71045; 71275; 80048; 80053; 81001; 82570; 82607; 82728; 82746; 83540; 83550; 83605; 83735; 83935; 84145; 84295; 84300; 84439; 84443; 84466; 84480; 84540; 85025; 85027; 85610; 85730; 87040; 87070; 87081; 87086; 87205; 87426; 87449; 87899; 88305; 92526; 92610; 92611; 93005; 94640; 96361; 96365; 96367; 96372; 96375; 97110; 97161; 97165; 97530; 97535; 99285; A9270; C9113; C9803; G0378; J0295; J0456; J0696; J1644; J1940; J2270; J2930; J7030; Q9967; U0003; U0005